=== PATIENT | male | born 1950 | race Caucasian/White ===

== ENCOUNTER → 2016-12-03 | Outpatient (CLI) | payer BC ==
[~2016-12-03] MED LIST: ASPI81TA21 PO; ATOR-24 PO; FLUO20CA35 PO; LEVO200T PO; LISI20TA3 PO; METF1000 PO; METO25TA3 PO; MULT-506 PO; TRIA37.5 PO
[2016-12-03 16:23] LABS: BLOOD UREA NITROGEN 24 mg/dl (7-18); BUN/CREATININE RATIO 21.6 (10-20); CALCIUM 8.9 mg/dl (8.5-10.1); CARBON DIOXIDE 30 mmol/L (21-32); CHLORIDE 106 mmol/L (98-107); GLUCOSE 97 mg/dl (70-99); POTASSIUM 3.6 mmol/L (3.5-5.1); SODIUM 142 mmol/L (136-145)
[2016-12-03 16:25] LABS: CHOLESTEROL 120 mg/dl (0-200); CHOLESTEROL/HDL RATIO 3.3; HDL CHOLESTEROL 36 mg/dl; TRIGLYCERIDES 128 mg/dl (0-150); VERY LOW DENSITY LIPOPROT CALC 26 mg/dl
[2016-12-03 16:41] LABS: RATIO 19.5 mcg/mg (0-30.0)
[2016-12-04 08:51] LABS: ESTIMATED AVERAGE GLUCOSE 151 mg/dl; HA1C FLAG Normal (Normal)
== END ==
LOC: C.LABSPEC 14:48
PROVIDERS: ATTEND Internal Medicine
DX: E78.5 Hyperlipidemia, unspecified (principal); I10 Essential (primary) hypertension; Z00.01 Encounter for general adult medical examination with abnormal findings; E11.65 Type 2 diabetes mellitus with hyperglycemia

== ENCOUNTER → 2017-01-12 | Outpatient (CLI) | payer BC ==
[2017-01-12 14:56] LABS: HEMATOCRIT 49.9 % (42-52); MEAN CELL VOLUME 93.8 fL (80-100); MEAN CORPUSCULAR HEMOGLOBIN 31.8 pg (25-34); MEAN CORPUSCULAR HGB CONC 33.9 g/dl (32-36); MEAN PLATELET VOLUME 10.6 fL (7.4-10.4); PLATELET COUNT 209 K/uL (130-400); RED BLOOD COUNT 5.32 M/uL (4.7-6.1); WHITE BLOOD COUNT 8.06 K/uL (4.8-10.8)
[2017-01-12 15:23] LABS: ALT/SGPT 13 U/L (12-78); AST/SGOT 8 U/L (15-37); BLOOD UREA NITROGEN 25 mg/dl (7-18); BUN/CREATININE RATIO 25.5 (10-20); CALCIUM 8.8 mg/dl (8.5-10.1); CARBON DIOXIDE 31 mmol/L (21-32); CHLORIDE 106 mmol/L (98-107); CREATININE 0.97 mg/dl (0.60-1.40); GLUCOSE 99 mg/dl (70-99); POTASSIUM 3.8 mmol/L (3.5-5.1); SODIUM 143 mmol/L (136-145)
[2017-01-12 15:26] LABS: CHOLESTEROL 113 mg/dl (0-200); CHOLESTEROL/HDL RATIO 3.3; HDL CHOLESTEROL 34 mg/dl; LDL CHOLESTEROL CALCULATED 54 mg/dl; TRIGLYCERIDES 126 mg/dl (0-150); VERY LOW DENSITY LIPOPROT CALC 25 mg/dl
== END | disposition home or self-care (01) ==
LOC: C.LAB 14:06
PROVIDERS: ATTEND Internal Medicine Cardiovascular Disease
DX: I10 Essential (primary) hypertension (principal); E78.00 Pure hypercholesterolemia, unspecified; I25.10 Atherosclerotic heart disease of native coronary artery without angina pectoris; R00.2 Palpitations

== ENCOUNTER → 2017-04-02 | Outpatient (CLI) | payer BC | END | disposition home or self-care (01) | LOC: C.PATHSPEC 17:27 | PROVIDERS: ATTEND Urology | DX: C67.9 Malignant neoplasm of bladder, unspecified (principal) ==

== ENCOUNTER → 2017-04-06 | Outpatient (CLI) | payer BC | END | disposition home or self-care (01) | LOC: C.LABSPEC 15:09 | PROVIDERS: ATTEND Internal Medicine | DX: E11.9 Type 2 diabetes mellitus without complications (principal); E03.9 Hypothyroidism, unspecified; Z12.11 Encounter for screening for malignant neoplasm of colon ==

== ENCOUNTER → 2017-04-09 | Outpatient (CLI) | payer BC ==
[2017-04-09 16:19] LABS: THYROID STIMULATING HORMONE 0.978 uIu/ml (0.300-4.500)
[2017-04-10 06:30] LABS: ESTIMATED AVERAGE GLUCOSE 148 mg/dl; HA1C FLAG Normal (Normal)
== END | disposition home or self-care (01) ==
LOC: C.LABSPEC 16:09
PROVIDERS: ATTEND Internal Medicine
DX: E11.9 Type 2 diabetes mellitus without complications (principal); E03.9 Hypothyroidism, unspecified

== ENCOUNTER → 2017-10-07 | Outpatient (CLI) | payer BC ==
[2017-10-07 15:37] LABS: BASO % 0.4 %; BASO ABS # 0.02 K/uL (0-0.2); EOS % 2.3 %; EOS ABS # 0.12 K/uL (0-0.5); HEMATOCRIT 49.1 % (42-52); HEMOGLOBIN 16.8 g/dL (14.0-18.0); IG# 0.01 K/uL (0.00-0.02); LYMPH % 28.3 %; LYMPH ABS # 1.51 K/uL (1.2-3.4); MEAN CELL VOLUME 93.3 fL (80-100); MEAN CORPUSCULAR HEMOGLOBIN 31.9 pg (25-34); MEAN CORPUSCULAR HGB CONC 34.2 g/dl (32-36); MEAN PLATELET VOLUME 11.2 fL (7.4-10.4); MONO % 9.9 %; MONO ABS # 0.53 K/uL (0.11-0.59); NEUT % 58.9 %; NEUT ABS # 3.14 K/uL (1.4-6.5); PLATELET COUNT 175 K/uL (130-400); RED CELL DISTRIBUTION WIDTH CV 14.5 % (11.5-14.5); RED CELL DISTRIBUTION WIDTH SD 48.7 fL (36.4-46.3); WHITE BLOOD COUNT 5.33 K/uL (4.8-10.8)
[2017-10-07 15:45] LABS: ALBUMIN 3.6 gm/dl (3.4-5.0); ALT/SGPT 19 U/L (12-78); AST/SGOT 12 U/L (15-37); BLOOD UREA NITROGEN 21 mg/dl (7-18); CARBON DIOXIDE 31 mmol/L (21-32); CHOLESTEROL 102 mg/dl (0-200); CREATININE 1.07 mg/dl (0.60-1.40); GLUCOSE 99 mg/dl (70-99); POTASSIUM 3.7 mmol/L (3.5-5.1); SODIUM 139 mmol/L (136-145)
[2017-10-07 15:54] LABS: ALKALINE PHOSPHATASE 108 U/L (45-117); LDL CHOLESTEROL (DIRECT) 62 mg/dl; TOTAL PROTEIN 7.2 gm/dl (6.4-8.2)
[2017-10-08 06:37] LABS: HEMOGLOBIN A1C 7.1 % (4.5-5.6)
== END | disposition home or self-care (01) ==
LOC: C.LABSPEC 15:00
PROVIDERS: ATTEND Internal Medicine
DX: I25.10 Atherosclerotic heart disease of native coronary artery without angina pectoris (principal); E78.5 Hyperlipidemia, unspecified; E11.9 Type 2 diabetes mellitus without complications; E03.9 Hypothyroidism, unspecified

== ENCOUNTER → 2017-10-07 | Outpatient (CLI) | payer BC | END | disposition home or self-care (01) | LOC: C.LABSPEC 14:58 | PROVIDERS: ATTEND Urology | DX: C67.9 Malignant neoplasm of bladder, unspecified (principal) ==

== ENCOUNTER 2021-12-02 08:17 | Observation (INO) ==
[2021-12-02] MEDS ORDERED: ASPIRIN 325 MG ECTAB PO ONE (08:55)
--- NOTE | 2021-12-02 10:04 | History & Physical Bridge Note ---
Date of Service December 02, 2021 History & Physical Bridge Note I have examined the patient, reviewed the History & Physical and in the interval since the performance of the History & Physical I have noted the following changes of clinical significance: no changes noted
[2021-12-02] MEDS ORDERED: niCARdipine HCL INJ 2.5 MG/ML 10 ML AMP ONE (10:10)
[2021-12-02] MEDS ORDERED: NITROGLYCERIN/D5W 100MCG/ML 20ML SYR ONE (10:10)
[2021-12-02] MEDS ORDERED: fentaNYL citrate 100 MCG/2 ML VIAL ONE ×3 (10:10→12:36)
[2021-12-02] MEDS ORDERED: HEPARIN (PORCINE) 1000 UNIT/ML 10 ML (CATH LAB USE ONLY) ONE ×2 (10:10→11:53)
[2021-12-02] MEDS ORDERED: MIDAZOLAM HCL 1 MG/ML 2ML VIAL ONE ×3 (10:10→11:50)
[2021-12-02] MEDS ORDERED: methylPREDNISolone 125 MG/2 ML VIAL ONE (10:11)
[2021-12-02] MEDS ORDERED: diphenhydrAMINE 50 MG/ML VIAL ONE (10:11)
--- NOTE | 2021-12-02 10:11 | Pre Anesthesia Assessment ---
Date of Service December 02, 2021 Pre Sedation Assessment Vital Signs Temp Pulse Resp BP Pulse Ox 12/02/21 08:35 36.3 C L 50 L 18 150/95 H 92 Cardiovascular + bradycardic Respiratory normal respiratory effort, lungs clear to auscultation Pre-Sedation Airway Assessment Smoking Status: Current every day smoker Mallampati Class: II ASA: ASA3 NPO Status Date of Last Intake of Fluids: 12/01/21 Time of Last Intake of Fluids: 23:00 Date of Last Intake of Solid Food: 12/01/21 Time of Last Intake of Solid Foods: 23:00 Procedure Planning Contraindications for Sedation: none Current Medications Reviewed: Yes Notes The planned sedation has been discussed with the patient. Informed Consent was obtained. I have identified the patient, determined the appropriateness of sedation and have assessed the patient immediately prior to the procedure. All medicine(s) and interventions are by my order.
--- NOTE | 2021-12-02 11:41 | Cardiac Catheterization ---
[facility] Data: Telemarketing Manager Cardiac Status Clinical evaluation leading to the procedure CAD Presenation: Positive Stress Test and Stable angina Anginal Classification: CCS III Heart Failure: No Cardiogenic Shock within 24 Hours: No Cardiac Arrest within 24 Hours: No Imaging Studies Past 6 Months: Yes Stress Studies Past 6 Months: Yes Standard Exercise Test: Yes - Negative Stress Echocardiogram: Yes - Positive and Risk/Extent of Ischemia (Intermediate) Stress Testing w/SPECT MPI: No Cardiac CTA: No Coronary Anatomy Dominant: Co-Dominant Diagnostic Physicians Name: João Rousseau MD Status: Elective Closure Device Percutaneous Entry Location: Radial Closure Device: Radial Band Recommendations: PCI without planned CABG Cardiac Cath Procedure Full Procedure Date December 02, 2021 Pre-Procedure Diagnosis Pre-Procedure Diagnosis: Angina and Positive Stress Test AUC Score AUC Score: 8 Post-Procedure Diagnosis Post-Procedure Diagnosis: Severe CAD and Normal Intracardiac Pressures Procedure(s) Performed Procedure(s) Performed: Coronary Angiography and Left Heart Cath Massage Coordinator João Rousseau MD Bag Hanger(s) Showers Estimated Blood Loss Estimated Blood Loss: < 25 ml Medication(s) Medication(s): Diphenhydramine, Fentanyl, Heparin, Lidocaine 1%, Nicardipine and Versed Summary of Findings Procedures: 1. Coronary angiography 2. Left heart catheterization 3. Moderate sedation Indication: Mr. Hopkins is a 71-year-old gentleman with known CAD, hypertension, dyslipidemia, and type 2 diabetes. He has been noting exertional angina and underwent outpatient stress echo that suggested LAD ischemia. Coronary angiography: 1. Left main: No significant CAD. 2. Left anterior descending: LAD is a large-caliber vessel that extends to the apex. Proximal and early mid LAD 20 to 30%, involving ostium of small D1. Mid LAD 70 to 80% at bifurcation of medium caliber D2. GISELL-3 flow. 3. Circumflex: Codominant. Distal circumflex 20 to 30%. OM1 and circumflex PDA without significant CAD. 4. Right coronary artery: Codominant. Diffuse nonobstructive CAD involving the RCA. Proximal RCA 30%. Mid RCA 30 to 40%. Distal RCA 40%. Small PDA and PL. Left heart catheterization: 1. Left ventriculography was not performed. 2. Normal LVEDP; 11 mmHg. 3. No significant aortic stenosis. Moderate sedation: 1. Sedation start time: 10:55 AM 2. Sedation end time: 11:25 AM Procedure notes: 1. Access was obtained via the right radial artery. J-wire was unable to be advanced. Angiography was performed. Glidewire was advanced into the brachial artery and catheters were easily advanced. 2. IVF (normal saline) administered prior to angiography due to CKD. 3. Solumedrol and benadryl IV given due to iodine allergy (unclear if IV dye allergy). Impression: 1. Severe CAD involving mid LAD. 2. Otherwise, nonobstructive CAD. 3. Codominant system. 4. Normal left-sided filling pressure. 5. No significant aortic stenosis. Plan: 1. Images reviewed with Dr. Villa of interventional cardiology who plans to attempt PCI of mid LAD. 2. Smoking cessation. 3. Risk factor modification. 4. Blood pressure control (medications were adjusted last week as an outpatient however he did not start amlodipine as prescribed). Hemodynamics Rest Ao:: 166/80 Final Ao: 176/83 LV: 160/5/11 Recommendations Recommendations: PCI without planned CABG Specimens Specimens: None Radiation Exposure (mGy) 963 mGy. Fluoro time 6 min. Contrast (mls) 70 ml Procedural Complication(s) None Disposition remains in laborer operator for PCI attempt I attest to the content of the Intraoperative Record and any orders documented therein. Any exceptions are noted below. [facility] Card Cath Procedure Codes Cardiac Catheterization Procedure 1: Cardiovascular Cath Procedures: 73519 Coronaries and LHC (+/-LV) Moderate Sedation Procedure 1: Sedation/Anesthesia: 00734 Mod Sedation by the same physician;Init15 Min Child Age 5 & Up Procedure 2: Sedation/Anesthesia: 42237 Mod Sedation by the same physician; Ea [id number] Minutes PG Care Time/CCT Total # of Minutes Spent Total Time Spent with Patient: Total time spent is greater than 50% in coordination of care (as documented) at patient's floor/unit and/or counseling patient:
[2021-12-02] MEDS ORDERED: EPTIFIBATIDE 2 MG/ML 10 ML VIAL (CATH LAB USE ONLY) IV ONE (12:04)
[2021-12-02] MEDS ORDERED: DOPamine 400MG / 250ML D5W (Cath Lab Use ONLY) ONE (12:06)
[2021-12-02] MEDS ORDERED: EPTIFIBATIDE 0.75 MG/ML 75MG VIAL (CATH LAB USE ONLY) ONE (12:46)
[2021-12-02] MEDS ORDERED: TICAGRELOR 90 MG TAB PO ONE (12:50)
--- NOTE | 2021-12-02 13:07 | Post Anesthesia Assessment ---
Date of Service December 02, 2021 Post Sedation Assessment Vital Signs Temp Pulse Resp BP Pulse Ox 12/02/21 13:00 47 L 18 180/87 H 93 12/02/21 08:35 97.3 F L 50 L 18 150/95 H 92 Recovery Score Activity: Moves 4 extremities Respiration: Deep Breath/Cough Circulation: +/-20% PreAnes Value Consciousness: Fully Awake Oxygen Saturation: > 92% On Room Air Post Anesthesia Score: 10 Discharge Sedation Level of Care: Fast Track Phase II Post Sedation Plan On clinical assessment, the patient appears to have tolerated the sedation without complications. Patient is recovering as anticipated. Patient will continue to be monitored by nursing and may be discharged when sedation discharge criteria are met per below protocol. Upon Completions of procedure up to 15 minutes continue every 5 minute vital signs and the P.A.R. score; then discharge to a Phase I or Fast Track to Phase II per the following guidelines: * Discharge Patient to appropriate Phase II area if PAR is 8 or greater or return to pre- procedure baseline. The post - procedure orders will be as directed. * If PAR score is less than 8 or not return to pre-procedure baseline then patient will follow Phase I monitoring till PAR is reached for Phase II. The Phase I may be done in procedure room or may call to secure a Phase I area. * If naloxone or flumazenil are used for reversal, hold in Phase I for continued monitoring from when last reversal dose was given for a minimum of 60 minutes or longer pending the nurse and/or physician discretion of patient condition before discharge to Phase II. Please call the Sedation Physician to re-evaluate and complete post-note for discharge to Phase II area. Do NOT discharge from procedure sedation or Phase 1 until post- sedation evaluation note is complete by procedure /sedation MD Sedation Discharge Instructions to be given to the patient at discharge to home.
[2021-12-02] MEDS ORDERED: NITROGLYCERIN SL 0.4 MG/TAB TAB SL PRN ×2 (13:35→13:40)
[2021-12-02] MEDS ORDERED: EPTIFIBATIDE BOLUS/DRIP IV STA (13:35)
[2021-12-02] MEDS ORDERED: ONDANSETRON INJ 2 MG/ML 2 ML VIAL IV PRN (13:35)
[2021-12-02] MEDS ORDERED: SODIUM CHLORIDE 0.9% 1000ML 1,000 ML IV SCH (13:45)
--- NOTE | 2021-12-02 13:46 | Cardiac Catheterization ---
[facility] Data: Reservations Manager Cardiac Status Clinical evaluation leading to the procedure CAD Presenation: Positive Stress Test Diagnostic Physicians Name: Kenny Villa MD Closure Device Recommendations: PCI without planned CABG Cardiac Cath Procedure Full Procedure Date December 02, 2021 Pre-Procedure Diagnosis Pre-Procedure Diagnosis: Angina and Positive Stress Test AUC Score AUC Score: 8 Post-Procedure Diagnosis Post-Procedure Diagnosis: Severe CAD and Successful PCI Procedure(s) Performed Procedure(s) Performed: Coronary Angiography, Left Heart Cath and Drug Eluting Stent Hoistman Kenny Villa MD Face Hardener(s) Showers Estimated Blood Loss Estimated Blood Loss: < 25 ml Medication(s) Medication(s): Diphenhydramine, Fentanyl, Heparin, Integrilin, Lidocaine 1%, Nicardipine and Versed Medication(s): Ticagrelor Summary of Findings Indication: Refractory angina, abnormal stress test Access: 6 Fr right radial artery Catheters: EBU 3.5 guide Findings: For full details of patient's coronary angiography please see cath report dictated by Dr. Rousseau. Briefly, patient found to have severe LAD disease with 75% stenosis at bifurcation with medium caliber D2. Prior stress test consistent with anterior ischemia. Decision to proceed with PCI. -- PCI -- Antithrombotic therapy: Heparin, ticagrelor, Integrilin Procedure: Left main cannulated with EBU 3.5 guide Pre-procedure flow GISELL 3 Circus Performer 50 wire passed across lesion into distal LAD Attempt made to place second wire into diagonal unsuccessful Mid LAD lesion predilated with 2.5 and 3.0 compliant balloons With the aid of a telescope support catheter dilated lesion stented with 3.0 x 18 mm Erick Stent placement noted to have no flow in distal LAD. Also noted to have severe ostial stenosis in jailed second diagonal. Attempt made to pass wire across distal LAD occlusion unsuccessful IC vasodilators, IC Integrilin administered with eventual return of distal LAD flow and evidence of distal LAD dissection. Mid LAD stent postdilated with 3.5 NC Multiple attempts made to cross into jailed diagonal but unsuccessful. Severe ostial stenosis but GISELL-3 flow Due to tortuosity and difficulty crossing vessel decision made to avoid further attempts at intervention to distal LAD and continue Integrilin infusion. Post procedure GISELL 3 flow in LAD stent, second diagonal and distal LAD. Stent well expanded with minimal residual stenosis. Severe residual ostial stenosis of jailed diagonal. Residual dissection in distal LAD but not flow-limiting. Arterial Closure: TR band Summary: 1. PCI of mid LAD with single drug-eluting stent (3.0 x 18 mm Erick; postdilated with 3.5 NC). Severe ostial stenosis in jailed D2 with GISELL-3 flow 2. Procedural distal LAD dissection, transiently flow-limiting. Recommendations: To PCU for continued monitoring Loaded with ticagrelor 180 mg in Reservations Manager Continue IC Integrilin overnight Continue dual-antiplatelet therapy for at least 1 year Hemodynamics Rest Ao:: 148/70/97 Final Ao: 132/71/25 LV: -- Recommendations Recommendations: PCI without planned CABG Specimens Specimens: None Radiation Exposure (mGy) 7173 Contrast (mls) 240 Anesthesia Moderate 1253-0196 Procedural Complication(s) None Disposition PCU I attest to the content of the Intraoperative Record and any orders documented therein. Any exceptions are noted below. [facility] Card Cath Procedure Codes Moderate Sedation Procedure 1: Sedation/Anesthesia: 21236 Mod Sedation by the same physician; Ea [id number] Minutes Stenting Procedure 1: Cardiovascular Stent Procedures: 93409 Perc transcatheter placement of intracoronary stent(s), with ang PG Care Time/CCT Total # of Minutes Spent Total Time Spent with Patient: Total time spent is greater than 50% in coordination of care (as documented) at patient's floor/unit and/or counseling patient:
[2021-12-02] MEDS: EPTIFIBATIDE 75 MG/100 ML VIAL IV SCH (15:13)
[2021-12-02] MEDS ORDERED: hydrALAZINE HCL 20 MG/ML VIAL IV PRN (15:52)
[2021-12-02] MEDS ORDERED: lisinopril 10 MG TAB PO STA (15:55)
[2021-12-02] MEDS ORDERED: amLODIPine BESYLATE 5 MG TAB PO ONE (16:00)
[2021-12-02] MEDS: METOPROLOL TARTRATE 25 MG TAB PO SCH (20:59)
[2021-12-03] MEDS: EPTIFIBATIDE 75 MG/100 ML VIAL IV SCH ×2 (01:40→10:56)
[2021-12-03] MEDS ORDERED: LEVOTHYROXINE SODIUM 150 MCG TABLET PO SCH (06:30)
[2021-12-03 06:34] LABS: Hemoglobin 17.2 g/dL (14.0-18.0); Mean Corpuscular Hemoglobin 31.4 pg (25-34); Mean Corpuscular Hgb Conc 33.7 g/dL (32-36); Mean Corpuscular Volume 93.2 fL (80-100); Mean Platelet Volume 10.8 fL (7.4-10.4); Platelet Count 210 K/uL (130-400); RDW Coefficient of Variation 14.7 % (11.5-14.5); RDW Standard Deviation 49.8 fL (36.4-46.3); Red Blood Count 5.47 M/uL (4.7-6.1); White Blood Count 9.88 K/uL (4.8-10.8)
[2021-12-03] MEDS ORDERED: LIDOCAINE 1% LOCAL 20 ML VIAL ONE (06:35)
[2021-12-03] MEDS ORDERED: HEPARIN (PORCINE) 1000 UNIT/ML 10 ML (CATH LAB USE ONLY) ONE (06:45)
[2021-12-03] MEDS ORDERED: fentaNYL citrate 100 MCG/2 ML VIAL ONE ×2 (06:45→07:54)
[2021-12-03] MEDS ORDERED: niCARdipine HCL INJ 2.5 MG/ML 10 ML AMP ONE (06:45)
[2021-12-03] MEDS ORDERED: MIDAZOLAM HCL 1 MG/ML 2ML VIAL ONE ×3 (06:45→08:44)
[2021-12-03] MEDS ORDERED: NITROGLYCERIN/D5W 100MCG/ML 20ML SYR ONE (06:46)
--- NOTE | 2021-12-03 07:04 | Pre Anesthesia Assessment ---
Date of Service December 03, 2021 Pre Sedation Assessment Vital Signs Temp Pulse Pulse Pulse Resp BP Pulse Ox 12/03/21 06:55 50 L 17 166/100 H 92 12/03/21 03:22 98.1 F 49 L 18 144/75 H 91 12/02/21 23:22 98.1 F 59 L 18 138/78 96 12/02/21 22:18 70 12/02/21 21:20 60 149/95 H 12/02/21 20:58 70 164/100 H 12/02/21 20:20 55 L 179/100 H 12/02/21 19:35 97.3 F L 60 20 150/90 H 98 12/02/21 18:20 58 L 13 131/85 98 12/02/21 17:20 49 L 24 174/91 H 96 12/02/21 16:42 50 L 26 H 178/101 H 98 12/02/21 16:20 53 L 22 199/113 H 96 12/02/21 16:07 50 L 20 186/117 H 96 12/02/21 15:20 97.5 F L 47 L 18 180/105 H 96 12/02/21 14:50 47 L 18 190/126 H 98 12/02/21 14:45 46 L 12/02/21 14:37 97.5 F L 48 L 16 200/113 H 92 12/02/21 14:15 52 L 18 180/108 H 93 12/02/21 14:00 45 L 18 208/105 H 94 12/02/21 13:45 48 L 18 195/100 H 95 12/02/21 13:30 47 L 18 180/109 H 95 12/02/21 13:15 45 L 18 181/95 H 95 12/02/21 13:00 47 L 18 180/87 H 89 L 12/02/21 08:35 97.3 F L 50 L 18 150/95 H 92 Cardiovascular RRR, no murmur, no edema Respiratory normal respiratory effort, lungs clear to auscultation Pre-Sedation Airway Assessment Smoking Status: Current every day smoker Hx Sleep Apnea: No Short, Thick Neck: No Thyromental Distance: > or= 3.5 Finger Breadths Oral Cavity: + WNL Mallampati Class: III ASA: ASA3 NPO Status Date of Last Intake of Fluids: 12/02/21 Time of Last Intake of Fluids: 23:00 Date of Last Intake of Solid Food: 12/02/21 Time of Last Intake of Solid Foods: 23:00 Procedure Planning Contraindications for Sedation: none Current Medications Reviewed: Yes Notes The planned sedation has been discussed with the patient. Informed Consent was obtained. I have identified the patient, determined the appropriateness of sedation and have assessed the patient immediately prior to the procedure. All medicine(s) and interventions are by my order.
[2021-12-03 07:10] LABS: BUN Creatinine Ratio 23.8 (10-20); Creatinine Clr Calc Pharmacy 63.5 ml/min; Est GFR (African American) 69.7 ml/min; Est GFR (Non-African American) 60.1 ml/min; Potassium 3.8 mmol/L (3.5-5.1)
[2021-12-03] MEDS ORDERED: ATORVASTATIN 40 MG TAB PO SCH (09:00)
[2021-12-03] MEDS ORDERED: amLODIPine BESYLATE 5 MG TAB PO SCH (09:00)
[2021-12-03] MEDS ORDERED: FLUoxetine HCL 20 MG CAP PO SCH (09:00)
[2021-12-03] MEDS ORDERED: lisinopril 20 MG TAB PO SCH (09:00)
[2021-12-03] MEDS ORDERED: ASPIRIN 81 MG ECTAB PO SCH (09:00)
--- NOTE | 2021-12-03 09:12 | Post Anesthesia Assessment ---
Date of Service December 03, 2021 Post Sedation Assessment Vital Signs Temp Pulse Pulse Pulse Resp BP Pulse Ox 12/03/21 08:04 61 12/03/21 06:55 50 L 17 166/100 H 92 12/03/21 03:22 98.1 F 49 L 18 144/75 H 91 12/02/21 23:22 98.1 F 59 L 18 138/78 96 12/02/21 22:18 70 12/02/21 21:20 60 149/95 H 12/02/21 20:58 70 164/100 H 12/02/21 20:20 55 L 179/100 H 12/02/21 19:35 97.3 F L 60 20 150/90 H 98 12/02/21 18:20 58 L 13 131/85 98 12/02/21 17:20 49 L 24 174/91 H 96 12/02/21 16:42 50 L 26 H 178/101 H 98 12/02/21 16:20 53 L 22 199/113 H 96 12/02/21 16:07 50 L 20 186/117 H 96 12/02/21 15:20 97.5 F L 47 L 18 180/105 H 96 12/02/21 14:50 47 L 18 190/126 H 98 12/02/21 14:45 46 L 12/02/21 14:37 97.5 F L 48 L 16 200/113 H 92 12/02/21 14:15 52 L 18 180/108 H 93 12/02/21 14:00 45 L 18 208/105 H 94 12/02/21 13:45 48 L 18 195/100 H 95 12/02/21 13:30 47 L 18 180/109 H 95 12/02/21 13:15 45 L 18 181/95 H 95 12/02/21 13:00 47 L 18 180/87 H 89 L Recovery Score Activity: Moves 4 extremities Respiration: Deep Breath/Cough Circulation: +/-20% PreAnes Value Consciousness: Fully Awake Oxygen Saturation: > 92% On Room Air Post Anesthesia Score: 10 Discharge Sedation Level of Care: Fast Track Phase II Post Sedation Plan On clinical assessment, the patient appears to have tolerated the sedation without complications. Patient is recovering as anticipated. Patient will continue to be monitored by nursing and may be discharged when sedation discharge criteria are met per below protocol. Upon Completions of procedure up to 15 minutes continue every 5 minute vital signs and the P.A.R. score; then discharge to a Phase I or Fast Track to Phase II per the following guidelines: * Discharge Patient to appropriate Phase II area if PAR is 8 or greater or return to pre- procedure baseline. The post - procedure orders will be as directed. * If PAR score is less than 8 or not return to pre-procedure baseline then patient will follow Phase I monitoring till PAR is reached for Phase II. The Phase I may be done in procedure room or may call to secure a Phase I area. * If naloxone or flumazenil are used for reversal, hold in Phase I for continued monitoring from when last reversal dose was given for a minimum of 60 minutes or longer pending the nurse and/or physician discretion of patient condition before discharge to Phase II. Please call the Sedation Physician to re-evaluate and complete post-note for discharge to Phase II area. Do NOT discharge from procedure sedation or Phase 1 until post- sedation evaluation note is complete by procedure /sedation MD Sedation Discharge Instructions to be given to the patient at discharge to home.
[2021-12-03] MEDS ORDERED: TICAGRELOR 90 MG TAB PO ONE (09:13)
--- NOTE | 2021-12-03 09:28 | Cardiac Catheterization ---
[facility] Data: Video Rental Clerk Cardiac Status Clinical evaluation leading to the procedure CAD Presenation: Positive Stress Test Diagnostic Physicians Name: Kenny Villa MD Closure Device Recommendations: PCI without planned CABG Cardiac Cath Procedure Full Procedure Date December 03, 2021 Pre-Procedure Diagnosis Pre-Procedure Diagnosis: Angina, Positive Stress Test and CAD AUC Score AUC Score: 8 Post-Procedure Diagnosis Post-Procedure Diagnosis: Severe CAD and Successful PCI Procedure(s) Performed Procedure(s) Performed: Coronary Angiography, Left Heart Cath and Drug Eluting Stent Geology Associate Kenny Villa MD Software Reverse Engineer(s) Jenn Estimated Blood Loss Estimated Blood Loss: 15 Medication(s) Medication(s): Heparin, Lidocaine 1%, Nicardipine, Nitroglycerin and Versed Medication(s): Ticagrelor Summary of Findings Indication: Patient underwent PCI of mid LAD yesterday in the setting of refractory angina, abnormal stress test. Procedure complicated by distal LAD dissection with transient flow obstruction in wraparound apical LAD. Flow reestablished with vasodilators, IC Integrilin but dissection persisted on final angiograms. Kept on Integrilin overnight. No new chest pain. Brought back this morning to reassess distal LAD. Access: 6 Fr right radial Catheters: EBU 3.75 guide Findings: LM -large caliber, no significant disease LAD -calcified, mid LAD stent patent, 95% hazy distal LAD stenosis with GISELL II flow in apical LAD. Severe ostial stenosis of jailed D2. LCxlarge caliber, no significant disease LVEDP post [id number] -- PCI -- Antithrombotic therapy: Heparin, ticagrelor Procedure: Left main cannulated with EBU 3.75 guide Pre-procedure flow GISELL 2 in apical LAD Long whisper wire passed across distal LAD dissection With the aid of a telescope support catheter Corsair catheter passed into apical vessel Injection through Corsair confirmed distal intraluminal position Wire exchanged for mailman wire Significant difficulty passing any balloons across prior stent Stent redilated with 2.0 and 3.0 balloons Telescope catheter advanced into stent. Proximal aspect of stent did appear to accordion distally. Eventually able to pass 3.0 balloon down to distal LAD stenosis and gently dilated. Distal LAD dissection stented with 2.5 x 12 mm [place]. Postdilated with stent balloon. IC vasodilators administered for spasm Post procedure GISELL 3 flow in LAD, mid LAD and distal LAD stents appeared well expanded. No residual dissection. Severe ostial stenosis in jailed D2 with GISELL II flow. Arterial Closure: TR band Summary: 1. Flow-limiting residual distal LAD dissection 2. Successful PCI of distal LAD dissection with single SYLVIE (2.5 x 12 mm Erick). 3. Additional post dilation of mid LAD stent with 4.0 NC balloon Residual severe ostial stenosis in jailed D2 Recommendations: To PCU for continued monitoring Continue dual-antiplatelet therapy for at least aspirin, ticagrelor Consult cardiac Rehab Medical management of residual diagonal disease. Hemodynamics Rest Ao:: 146/88/117 Final Ao: 153/85/116 LV: 154/14 Recommendations Recommendations: PCI without planned CABG Specimens Specimens: None Radiation Exposure (mGy) 6874 (Pt counseled on signs of radiation toxicity) Contrast (mls) 100 Anesthesia Moderate 1179-7135 Procedural Complication(s) None Disposition PCU I attest to the content of the Intraoperative Record and any orders documented therein. Any exceptions are noted below. [facility] Card Cath Procedure Codes Cardiac Catheterization Procedure 1: Cardiovascular Cath Procedures: 51291 Left Heart Cath (+/-LV) Moderate Sedation Procedure 1: Sedation/Anesthesia: 11955 Mod Sedation by the same physician; Ea [id number] Minutes Procedure 2: Sedation/Anesthesia: 45109 Mod Sedation by the same physician;Init15 Min Child Age 5 & Up Stenting Procedure 1: Cardiovascular Stent Procedures: 89178 Perc transcatheter placement of intracoronary stent(s), with ang PG Care Time/CCT Total # of Minutes Spent Total Time Spent with Patient: Total time spent is greater than 50% in coordination of care (as documented) at patient's floor/unit and/or counseling patient:
[2021-12-03] MEDS ORDERED: SODIUM CHLORIDE 0.9% 1000ML 1,000 ML IV SCH (09:30)
[2021-12-03] MEDS: METOPROLOL TARTRATE 25 MG TAB PO SCH (09:51)
--- NOTE | 2021-12-03 16:15 | Discharge Summary ---
Date of Service December 03, 2021 Admission HPI Per Admitting Provider Mr. Hopkins is a pleasant 71-year-old gentleman with a history significant for CAD, hypertension, dyslipidemia, type 2 diabetes, tobacco abuse, and bladder cancer. He presented on 12/02/2021 for elective cardiac catheterization given angina and abnormal stress echo suggesting LAD territory ischemia. He underwent PCI of the mid LAD which was complicated by distal LAD dissection. He was kept for observation overnight. Principal Diagnosis LAD CAD s/p PCI complicated by LAD dissection and additional PCI of distal LAD. Discharge Exam Gen.: No acute distress. Alert and oriented. HEENT: Anicteric sclera. Neck: No JVD. Cardiac: PMI was nondisplaced. No ventricular heave. Regular. Normal S1-S2. No murmurs, rubs, or gallops. Pulmonary: Decreased breath sounds throughout, but otherwise clear to auscultation bilaterally without wheezes, rales, or rhonchi. Abdomen: Soft, nontender, nondistended, with normoactive bowel sounds. No bruits noted. Extremities: 2+ radial pulses bilaterally. Right radial cath site without hematoma. edema or cyanosis. Psychiatric: Affect appears appropriate. Discharge Data Allergies Allergy/AdvReac Type Severity Reaction Status Date / Time iodine Allergy Unknown RASH AND Verified 11/29/21 08:18 HIVES Procedures Performed Operation Date: 12/02/21 10:00 Actual Procedures s Cineradiography w/Routine Exam - João Rousseau MD s Cath, Left with Cors and Vent - João Rousseau MD p Drug Eluting Stent SGl Vessel - Kang Villa MD Coronary angiography: 1. Left main: No significant CAD. 2. Left anterior descending: LAD is a large-caliber vessel that extends to the apex. Proximal and early mid LAD 20 to 30%, involving ostium of small D1. Mid LAD 70 to 80% at bifurcation of medium caliber D2. GISELL-3 flow. 3. Circumflex: Codominant. Distal circumflex 20 to 30%. OM1 and circumflex PDA without significant CAD. 4. Right coronary artery: Codominant. Diffuse nonobstructive CAD involving the RCA. Proximal RCA 30%. Mid RCA 30 to 40%. Distal RCA 40%. Small PDA and PL. Left heart catheterization: 1. Left ventriculography was not performed. 2. Normal LVEDP; 11 mmHg. 3. No significant aortic stenosis. PCI: 1. PCI of mid LAD with single drug-eluting stent (3.0 x 18 mm [place]; postdilated with 3.5 NC). Severe ostial stenosis in jailed D2 with GISELL-3 flow 2. Procedural distal LAD dissection, transiently flow-limiting. Operation Date: 12/03/21 07:30 Actual Procedures s Cineradiography w/Routine Exam - Kang Villa MD p Drug Eluting Stent SGl Vessel - Kang Villa MD Summary: 1. Flow-limiting residual distal LAD dissection 2. Successful PCI of distal LAD dissection with single SYLVIE (2.5 x 12 mm [place]). 3. Additional post dilation of mid LAD stent with 4.0 NC balloon Residual severe ostial stenosis in jailed D2 Ordered Studies 12/02/21 06:54 CL Cath Imgs for PACS use only Routine 12/03/21 06:41 CL Cath Imgs for PACS use only Routine Hospital Course (1) CAD in [place] artery: (2) S/P coronary artery stent placement: (3) Coronary artery dissection: (4) Exertional angina: (5) Hypertension: (6) Hypercholesterolemia: ASSESSMENT/PLAN: 1. CAD s/p LAD PCI: Able to ambulate in the hallway without angina or dyspnea. Overall, feels better following PCI x 2. Initial PCI complicated by distal LAD dissection for which he was observed overnight with Integrilin and then distal LAD dissection PCI on 12/03/2021. Has residual severe ostial D2, but remains asymptomatic. Continue aspirin 81 mg daily indefinitely. Continue Brilinta for at least 1 year. Continue high-intensity statin therapy, calcium channel venkatesh, beta-venkatesh, and MALORIE-inhibitor. 2. Coronary artery dissection: Distal LAD dissection during initial PCI as noted above. Asymptomatic and underwent PCI of the dissection and tolerated the procedure well. 3. Angina: No further angina following PCI. Had been experiencing angina as an outpatient. 4. Hypertension: Blood pressure has been elevated. Increase amlodipine to 10 mg daily and continue other antihypertensive agents. 5. Dyslipidemia: High-intensity statin therapy. 6. Disposition: Doing well from a cardiology standpoint following PCI as described above. Discussed and recommended further observation given repeat PCI but he declines and states that he needs to go home as he has animals at home that have not been attended to and that there is no one available to do so. He is able to obtain a ride home with family. Recommend follow-up in the outpatient cardiology office in 1 week. Total Time Total Time Spent Total Time Spent (In Minutes): 35 Total Time Includes: Examination of the Patient, Discharge Planning, Medication Reconciliation and Communication With Other Providers Discharge Plan Discharge Items Patient Disposition: Home - Self-Care Reason For Visit: Exertional Angina, Coronary Artery Disease Discharge Diagnosis: Coronary artery disease Activity: Per Instructions section Non-emergency contact: Human Resources Trainer Call non-emergency contact if: you have any medication questions, your symptoms worsen, you have a fever, your wound has increased redness, your wound has increased drainage and your wound pain has increased Follow-up/Referrals: João Rousseau MD [Physician] - 12/09/21 8:45 am Mandeep Arellano MD [Primary Care Provider] - Diet: Carb Consistent or DM2 and Heart Healthy Addtl Attending Provider Instructions: ACTIVITY RECOMMENDATIONS: Excess manipulation of the wrist should be avoided for the next 24-48 hours. * No lifting over 2 pounds (approximately a 1/2 gallon of milk) with the utilized arm for 24 hours. * No strenuous activity such as bowling or tennis for 3 days. * Keep the site of the procedure covered with a bandage for 24 hours. *You may shower the day after the procedure. Do not take a tub bath or submerge the puncture site in water for the next 3 days. *Do not operate any motorized equipment for 3 days. SPECIAL CARE INSTRUCTIONS: The site may be slightly bruised and sore following your procedure. Should any of the following occur, contact the Dr. who performed your procedure. 1. Redness/inflammation, swelling, chills, or fever, or colored drainage at procedure site within 3-7 days after your procedure. 2. Coldness, discoloration, ongoing numbness, severe pain, or swelling. Expect mild tingling of hand and tenderness at the puncture site for up to three days. If this persists beyond three days, or other symptoms develop, notify the Dr. who performed your procedure. BLEEDING: If the procedure site on your wrist begins to bleed, do not panic 1. Place 1 or 2 fingers firmly just slightly above the insertion site to stop the bleeding. You may be able to feel your pulse as you hold pressure. 2. Lift your finger after 5 minutes to see if the bleeding has stopped. 3. Once the bleeding has stopped, gently wipe the wrist area clean with a bandage. * If the bleeding from your wrist does not stop after 10 minutes, or if there is a large amount of bleeding or spurting, call 911 (do not drive yourself to the hospital). SKIN IRRITATION: * You may experience some redness and/or swelling in the area where radiation was administered. If any skin irritation occurs, please contact your family physician. FOLLOW UP VISIT: 1. Follow up in 1 week in cardiology office. Call [phone] for any questions or concerns. 2. Keep any scheduled doctor appointments. Pending Studies at Discharge: No Stand-Alone Forms: [facility] [employer], Smoking Cessation Medications and DC Order Prescriptions: New ticagrelor 90 mg tablet 90 mg PO BID Qty: 180 RF: 3 Continued atorvastatin 40 mg tablet 40 mg PO DAILY Qty: 90 RF: 3 nitroglycerin 0.4 mg tablet, sublingual 0.4 mg SL Q5M PRN (Reason: chest pain) Qty: 25 RF: 3 aspirin 81 mg tablet 81 mg PO DAILY RF: 0 lisinopril 20 mg tablet 20 mg PO DAILY Qty: 90 RF: 0 triamterene-hydrochlorothiazid 37.5-25 mg tablet 1 tab PO DAILY RF: 0 levothyroxine 150 mcg tablet 150 mcg PO DAILY RF: 0 metformin 1,000 mg tablet 1,000 mg PO BID RF: 0 fluoxetine 20 mg tablet 20 mg PO DAILY RF: 0 metoprolol succinate 25 mg tablet extended release 24 hr 25 mg PO DAILY RF: 0 Changed amlodipine 5 mg tablet 10 mg PO DAILY Qty: 30 RF: 5 Discharge Orders: Discharge Order (Routine); Ordered 12/03/21 Ordered By: João Fowler/Other Patient Handouts: Ticagrelor Oral Tablet 90 mg, ED Cardiac Cath Post Bleed Admission Data Admit Date/Time: 12/02/21 13:35 Attending Provider: João Rousseau Admit Provider: João Rousseau Primary Care Provider: Mandeep Arellano Other Interventions: Discharge Summary Assessment (RN) Last Done: 12/03/21 15:48 Coding Level of Care Code 90153 OBS Care - Discharge Diagnoses CAD in [place] artery I25.10 S/P coronary artery stent placement Z95.5 Coronary artery dissection I25.42 Exertional angina I20.8 Hypertension I10 Hypercholesterolemia E78.00
[2021-12-03] MEDS ORDERED: TICAGRELOR 90 MG TAB PO SCH (21:00)
--- NOTE | 2021-12-03 21:50 | Electrocardiogram Report ---
Test Reason : Blood Pressure : / mmHG Vent. Rate : 046 BPM Atrial Rate : 046 BPM P-R Int : 240 ms QRS Dur : 130 ms QT Int : 492 ms P-R-T Axes : 084 -35 -22 degrees QTc Int : 430 ms Sinus bradycardia with 1st degree A-V block Left axis deviation Non-specific intra-ventricular conduction block Abnormal ECG When compared with ECG of 07-NOV-2014 14:18, QRS duration has increased T wave inversion no longer evident in Anterolateral leads Confirmed by João Rousseau ([id number]) on 12/03/2021 9:50:18 PM Referred By: João Rousseau Confirmed By:João Rousseau
--- NOTE | 2021-12-04 05:41 | Electrocardiogram Report ---
Test Reason : Blood Pressure : / mmHG Vent. Rate : 049 BPM Atrial Rate : 049 BPM P-R Int : 248 ms QRS Dur : 118 ms QT Int : 486 ms P-R-T Axes : 000 -28 -33 degrees QTc Int : 439 ms Sinus bradycardia with 1st degree A-V block Minimal voltage criteria for LVH, may be normal variant Septal infarct , age undetermined T wave abnormality, consider anterolateral ischemia Abnormal ECG When compared with ECG of 02-DEC-2021 12:56, T wave inversion now evident in Anterolateral leads Confirmed by João Rousseau ([id number]) on 12/04/2021 5:40:35 AM Referred By: João Rousseau Confirmed By:João Rousseau
[2021-12-04] MEDS ORDERED: metFORMIN HCL 500 MG TAB PO SCH (08:00)
--- NOTE | 2021-12-04 16:23 | Electrocardiogram Report ---
Test Reason : Blood Pressure : / mmHG Vent. Rate : 049 BPM Atrial Rate : 049 BPM P-R Int : 248 ms QRS Dur : 118 ms QT Int : 486 ms P-R-T Axes : 000 -28 -33 degrees QTc Int : 439 ms Sinus bradycardia with 1st degree A-V block Minimal voltage criteria for LVH, may be normal variant Septal infarct , age undetermined T wave abnormality, consider anterolateral ischemia Abnormal ECG When compared with ECG of 02-DEC-2021 12:56, T wave inversion now evident in Anterolateral leads Confirmed by João Rousseau ([id number]) on 12/04/2021 5:40:35 AM Also confirmed by João Rousseau ([id number]), editor managing director Rodrigo Crespo ([id number]) on 12/04/2021 4:22:33 PM Referred By: João Rousseau Confirmed By:João Rousseau
== END 2021-12-03 17:37 | disposition home or self-care (01) ==
LOC: CC 08:17 → 2S 08:17
DX: Z79.890 Hormone replacement therapy; I25.118 Atherosclerotic heart disease of native coronary artery with other forms of angina pectoris; I20.8 Other forms of angina pectoris; E11.9 Type 2 diabetes mellitus without complications; Z79.899 Other long term (current) drug therapy; C67.9 Malignant neoplasm of bladder, unspecified; E78.00 Pure hypercholesterolemia, unspecified; I10 Essential (primary) hypertension; R94.39 Abnormal result of other cardiovascular function study; F17.290 Nicotine dependence, other tobacco product, uncomplicated; Z82.49 Family history of ischemic heart disease and other diseases of the circulatory system; Z79.82 Long term (current) use of aspirin; E78.5 Hyperlipidemia, unspecified

== ENCOUNTER 2024-02-23 13:56 | Inpatient (IN) ==
[2024-02-23 14:38] LABS: iSTAT Blood Urea Nitrogen > 140 mg/dl (7-18); iSTAT Carbon Dioxide 19 mmol/L (24-31); iSTAT Chloride 100 mmol/L (101-112); iSTAT Creatinine 6.9 mg/dl (0.6-1.3); iSTAT Glucose 228 mg/dl (70-99); iSTAT Hematocrit 55 % (42-52); iSTAT Hemoglobin 18.7 g/dl (14.0-18.0); iSTAT Ionized Calcium 0.96 mmol/l (1.12-1.32); iSTAT Potassium 3.7 mmol/L (3.3-5.0); iSTAT Sodium 135 mmol/L (135-144)
[2024-02-23] MEDS: SODIUM CHLORIDE 0.9% 1,000 ML IV SCH ×2 (14:39→15:26)
[2024-02-23 14:51] LABS: Basophils # (auto) 0.03 K/uL (0.00-0.20); Basophils % (auto) 0.3 %; Eosinophils # (auto) 0.07 K/uL (0.00-0.50); Eosinophils % (auto) 0.8 %; Immature Granulocytes # (auto) 0.09 K/uL (0.01-0.20); Lymphocytes # (auto) 1.13 K/uL (1.20-3.40); Lymphocytes % (auto) 12.9 %; Mean Corpuscular Hemoglobin 30.2 pg (25.0-34.0); Mean Corpuscular Volume 88.8 fL (80.0-100.0); Mean Platelet Volume 12.4 fL (9.4-12.4); Monocytes # (auto) 0.37 K/uL (0.11-0.59); Monocytes % (auto) 4.2 %; Neutrophils # (auto) 7.06 K/uL (1.40-6.50); Neutrophils % (auto) 80.8 %; Platelet Count 227 K/uL (130-400); RDW Coefficient of Variation 14.1 % (11.5-14.5); RDW Standard Deviation 45.6 fL (36.4-46.3); Red Blood Count 5.97 M/uL (4.70-6.10); White Blood Count 8.75 K/ul (4.8-10.8)
[2024-02-23 15:15] LABS: Alanine Aminotransferase 9 U/L (7-52); Albumin Globulin Ratio 1.3 (0.9-2); Albumin Level 4.1 gm/dl (3.4-5.0); Alkaline Phosphatase 97 U/L (34-104); Anion Gap 21 (3-11); Aspartate Aminotransferase 10 U/L (13-39); Bilirubin,Total 0.7 mg/dl (0.2-1.0); Calcium 9.2 mg/dl (8.6-10.3); Carbon Dioxide 21 mmol/L (21-32); Chloride 93 mmol/L (98-107); Est GFR (African American) 9.9 ml/min; Est GFR (Non-African American) 8.5 ml/min; Globulin 3.1 gm/dl (2.5-4.0); Glucose 236 mg/dl (70-99(Fasting)); Magnesium 2.5 mg/dl (1.7-2.4); Potassium 3.8 mmol/L (3.5-5.1); Sodium 135 mmol/L (136-145); Total Protein 7.2 gm/dl (6.0-8.3); Troponin I High Sensitivity 20.7 pg/ml (0-20)
[2024-02-23 15:19] LABS: Thyroid Stimulating Hormone 9.014 uIu/ml (0.300-4.500)
[2024-02-23 15:20] LABS: Blood Urea Nitrogen 172 mg/dl (6-23)
[2024-02-23 15:21] LABS: BUN Creatinine Ratio 28.3 (10-20)
[2024-02-23 15:43] LABS: Adenovirus PCR Not Detected (NotDetected); Bordetella parapertussis PCR Not Detected (NotDetected); Bordetella pertussis PCR Not Detected (NotDetected); Chlamydia pneumoniae PCR Not Detected (NotDetected); Coronavirus 229E PCR Not Detected (NotDetected); Coronavirus CoV-2 (COVID19)PCR Not Detected (NotDetected); Coronavirus HKU1 PCR Not Detected (NotDetected); Coronavirus NL63 PCR Not Detected (NotDetected); Coronavirus OC43PCR Not Detected (NotDetected); Human Metapneumovirus PCR Not Detected (NotDetected); Influenza A PCR Not Detected (NotDetected); Influenza B PCR Not Detected (NotDetected); Mycoplasma pneumoniae PCR Not Detected (NotDetected); Parainfluenza Virus 1 PCR Not Detected (NotDetected); Parainfluenza Virus 2 PCR Not Detected (NotDetected); Parainfluenza Virus 3 PCR Not Detected (NotDetected); Parainfluenza Virus 4 PCR Not Detected (NotDetected); Respiratory Syncytial VirusPCR Not Detected (NotDetected); Rhinovirus/Enterovirus PCR Not Detected (NotDetected)
--- NOTE | 2024-02-23 15:59 | Emergency Department Note ---
Impression & Plan Acute kidney injury, Vomiting, Elevated lactic acid level, Dehydration, severe ED Provider Note CHIEF COMPLAINT: Vomiting, near syncope HISTORY OF PRESENT ILLNESS: This 73-year-old male patient With past medical history of diabetes, recurrent vomiting, current kidney disease, bladder carcinoma a coronary artery dissection, CAD, hypercholesterolemia, hypertension, hypothyroid reflux, presents to the emergency department After being found somewhat disoriented and appearing at a truckstop. Patient seats he was there to meet someone who was going to take him for bloodwork. A bystander found him and escorted him to the bathroom where he nearly passed out. He has vomited several times and has been vomiting for the better part of a week. He states he was here two weeks ago with very similar symptoms and was given IV fluids. Patient denies any significant diarrhea, he cannot eat. He has been taking his pills but feels as though he vomits them up. REVIEW OF SYSTEMS: A review of systems was performed with positives and pertinent negatives listed in the history of present illness. 10 systems were reviewed and are otherwise negative. ALLERGIES: see below MEDICATIONS: see below PMH: see below SOCIAL HISTORY: see below DDx: Dehydration, viral illness, pancreatitis, reflux, bowel obstruction, Renal failure, electrolyte abnormality, foodborne process, Malignancy among others. PHYSICAL EXAM: Vital signs reviewed. hypotensive General: Chronically ill appearing 73 year-old male, . Pale and appearance HEENT: No scleral icterus, PERRLA, neck supple. Dry his membranes. Cardiovascular: Regular rate and rhythm, no extra sounds. Occasional ectopy Pulmonary: Clear to auscultation bilaterally, normal work of breathing. Abdomen: Soft, nontender, nondistended, positive bowel sounds. Musculoskeletal: Atraumatic, no peripheral edema. Neurologic: Patient somnolent but arousable, answers questions mostly appropriately. Danielle commands. Moves all extremities equally. Skin: Warm, dry, no rash EMERGENCY DEPARTMENT COURSE/MDM: This patient was evaluated and appeared to be in no significant distress. IV access was obtained and laboratory work withdrawn. The patient was placed a personnel monitor and noted to be in a sinus rhythm. Laboratory work is significant for an acute renal failure with a creatinine of 6.08. Patient was hypotensive and immediately hydrated with 1 L of normal saline solution. Patient was also noted to be hypoxic and placed on 3 L nasal cannula oxygen. He denied any history oxygen requirement. The ideology of the patient is unclear. IV contrast was not able to be administered given the patient's creatinine however CT imaging of the chest, abdomen and pelvis was performed. Previous imaging had been performed two weeks ago without any clear obstructive pathology to the kidneys. CT imaging as ordered above was negative for acute process, adrenal gland mass on the right is stable and again. Patient did not provide a specimen well in the emergency department. Lactate is elevated, blood pressure is hypotensive and blood cultures are pending. Patient was medicated with 2 g of IV ceftriaxone for empiric coverage. Additional IV fluids were ordered based on a 30 mL per kilogram ideal bodyweight. The case was discussed with the hospital service who will evaluate the patient for admission and for the management. MONITORING: An order for cardiac monitoring was placed and the patient is noted to be in a Sinus rhythm with PVCs at 56 beats per minute. RADIOLOGY: Chest x-ray to my interpretation no focal on consolidation or failure. Chest CT:IMPRESSION: 1. No acute process within the chest. 2. Emphysema. 3. Mild bronchial wall thickening. 4. Stable complex right adrenal gland mass. This is better appreciated on the same day abdomen and pelvis CT. abdomen/pelvis CT:IMPRESSION: 1. No acute abnormalities are seen in this patient with vomiting. 2. 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 3. Diverticulosis without diverticulitis. EKG: to my interpretation reveals a sinus rhythm first-degree AV block at 65 bpm with PVC appreciated. Left access deviation with non-specific interventricular conduction delay, previous septal infarct QTC is 457. DISPOSITION: admission I have personally spent 35 minutes of critical care time in the direct management of this patient. This was a life/limb threatening event. This 35 minutes is in excess of all separately billable procedures. Past Med/Surg History Problem List (Updated 02/25/24 @ 15:22 by Tali Nielsen MD) Dehydration, severe (Acute) Elevated lactic acid level (Acute) Vomiting (Acute) Acute kidney injury (Acute) Metabolic acidosis Acute kidney injury Nausea vomiting and diarrhea Diarrhea Type 2 diabetes mellitus with obesity Type 2 diabetes with stage 3 chronic kidney disease GFR 30-59 Chronic kidney disease, stage 3 Tobacco pipe smoker History of colon polyps Bladder carcinoma (Acute) Coronary artery dissection Status post insertion of drug-eluting stent into left anterior descending artery -- Mid LAD SYLVIE deployed 12/02/21 for angina and an abnormal stress echo. -- Distal LAD SYLVIE deployed 12/03/21 for distal LAD dissection. Cataract Benign prostate hyperplasia (Acute) CAD in [place] artery (Acute) PCI of mid LAD 12/02/21 with SYLVIE (complicated by distal LAD dissection); prompted PCI of distal LAD dissection with SYLVIE 12/03/21 Hypercholesterolemia (Acute) Hypertension (Acute) Hypothyroidism (Acute) Laryngopharyngeal reflux (Acute) History Spinal stenosis (Acute) Medical History Hx of bladder cancer Surgical History History of cataract surgery History of transurethral resection of bladder tumor (TURBT) Hx of inguinal hernia surgery H/O transurethral destruction of bladder lesion Hx of colonoscopy S/P coronary artery stent placement Vocal cord polyp S/P tonsillectomy History of knee surgery History of tooth extraction Family History Father Coronary heart disease Grandfather (Paternal) Lung cancer Grandfather (Maternal) Cancer Mother Breast cancer Brother Colorectal cancer Brother Aortic aneurysm Denies family history of Ovarian cancer Prostate cancer Myocardial infarction Social History Smoking Status: Current every day smoker Tobacco Type: Pipe Age Started Using Tobacco: 42; Cigarettes Per Day: smokes 2-3 per day- advised; Second Hand Exposure: Yes ( A CHILD); Do You Dip or Chew Tobacco: No; Hx Alcohol Use: Yes Alcohol type: beer Hx Substance Use: No Preferred Language: Luxembourger Communication Ability: Effective Visual Impairment: No Limitations Hearing Ability: Normal Product Safety Associate Required: No Beliefs That Will Affect Care: None marital status: Current Living Situation: Alone Current Living Situation Comment: home alone current occupational status: retired Feels Safe at Home: Yes Childhood Exposure to Second-Hand Smoke: Yes Dental Care, Regularly: No Physical Activity Frequency: Daily Seatbelt Use: always Sunscreen Use: No Assistive Devices: None Allergies Allergies Allergy/AdvReac Type Severity Reaction Status Date / Time iodine Allergy Intermediate RASH AND Verified 02/11/24 10:19 HIVES Home Meds Home Medications Medication Instructions Recorded Confirmed triamterene 37.5 1 tab PO QAM 01/25/24 02/23/24 mg-hydrochlorothiazide 25 mg tablet levothyroxine 175 mcg tablet 175 mcg PO QAM 02/10/24 02/23/24 aspirin 81 mg tablet,delayed 81 mg PO QAM 02/23/24 02/23/24 release Previous Rx's Medication Instructions Recorded nitroglycerin 0.4 mg sublingual 0.4 mg sublingual Q5M PRN chest 10/07/22 tablet pain #25 tabs fluoxetine 20 mg tablet 20 mg PO QAM #90 tabs 10/19/23 amlodipine 5 mg tablet 5 mg PO QAM #90 tabs 11/09/23 atorvastatin 40 mg tablet 40 mg PO QAM #90 tabs 11/09/23 lisinopril 20 mg tablet 20 mg PO QAM #90 tabs 11/09/23 metoprolol succinate 25 mg 25 mg PO QAM #90 tabs 11/09/23 tablet,extended release 24 hr semaglutide 7 mg tablet 7 mg PO DAILY #90 tabs 11/23/23 metformin 1,000 mg tablet 1,000 mg PO BID #180 tabs 02/08/24 ondansetron 4 mg disintegrating 4 mg PO Q6H PRN nausea and 02/10/24 tablet vomiting #14 tabs sucralfate 100 mg/mL oral 10 ml PO QID #420 mL 02/10/24 suspension (Carafate) Results & Data (ED) Vital Signs Vital Signs - 24 hr 02/23/24 14:11 02/23/24 14:27 02/23/24 14:29 Temperature 36.4 C L Temperature Source Oral Pulse Rate 58 L 64 Respiratory Rate 14 Respiratory Depth Normal Blood Pressure 56/34 L Blood Pressure [Left Arm] 74/55 L Blood Pressure Mean 41 Blood Pressure Mean [Left Arm] 61 Pulse Oximetry 88 L 95 Oxygen Delivery Method Room Air Nasal Cannula Oxygen Flow Rate 3 Sepsis Recent Fever Within 48 Hours No Sepsis New/Unexplained Change in Mental Status No Sepsis Action Taken by Nursing No Action Required 02/23/24 14:29 02/23/24 14:32 Temperature Temperature Source Pulse Rate Respiratory Rate Respiratory Depth Blood Pressure Blood Pressure [Left Arm] 93/62 L Blood Pressure Mean Blood Pressure Mean [Left Arm] 72 Pulse Oximetry 99 Oxygen Delivery Method Nasal Cannula Oxygen Flow Rate 3 Sepsis Recent Fever Within 48 Hours Sepsis New/Unexplained Change in Mental Status Sepsis Action Taken by [facility] Medications Current Medication List: was personally reviewed by me Laboratory Data Attestation: I reviewed the patient's lab results. 02/25/24 05:55 02/25/24 05:55 Lab Results 02/23/24 02/23/24 02/23/24 Range/Units 14:15 14:17 14:23 WBC 8.75 (4.8-10.8) K/ul RBC 5.97 (4.70-6.10) M/uL Hgb 18.0 (14.0-18.0) g/dl POC Hgb 18.7 H (14.0-18.0) g/dl Hct 53.0 H (42.0-52.0) % POC Hct 55 H (42-52) % MCV 88.8 (80.0-100.0) fL MCH 30.2 (25.0-34.0) pg MCHC 34.0 (32.0-36.0) g/dL RDW Std Deviation 45.6 (36.4-46.3) fL RDW Coeff of Alberto 14.1 (11.5-14.5) % Plt Count 227 (130-400) K/uL MPV 12.4 (9.4-12.4) fL Immature Gran % (Auto) 1.0 % Neut % (Auto) 80.8 % Lymph % (Auto) 12.9 % [place] % (Auto) 4.2 % Eos % (Auto) 0.8 % Baso % (Auto) 0.3 % Neut # (Auto) 7.06 H (1.40-6.50) K/uL Lymph # (Auto) 1.13 L (1.20-3.40) K/uL [place] # (Auto) 0.37 (0.11-0.59) K/uL Eos # (Auto) 0.07 (0.00-0.50) K/uL Baso # (Auto) 0.03 (0.00-0.20) K/uL Immature Gran # (Auto) 0.09 (0.01-0.20) K/uL POC Sodium 135 (135-144) mmol/L Sodium 135 L (136-145) mmol/L POC Potassium 3.7 (3.3-5.0) mmol/L Potassium 3.8 (3.5-5.1) mmol/L POC Chloride 100 L (101-112) mmol/L Chloride 93 L (98-107) mmol/L Carbon Dioxide 21 (21-32) mmol/L POC Total CO2 19 L (24-31) mmol/L Anion Gap 21 H (3-11) POC Anion Gap 20.0 (16-25) mmol/L POC BUN > 140 H* (7-18) mg/dl BUN 172 H (6-23) mg/dl Creatinine 6.08 H* (0.6-1.4) mg/dl POC Creatinine 6.9 H* (0.6-1.3) mg/dl Est Cr Clr Drug Dosing Not Reportable Est GFR ( Amer) 9.9 ml/min Est GFR (Non-Af Amer) 8.5 ml/min BUN/Creatinine Ratio 28.3 H (10-20) Glucose 236 H (70-99(Fasting)) mg/dl POC Glucose 197 H (70-99) mg/dl POC Glucose (other) 228 H (70-99) mg/dl Lactate (0.4-2.0) mmol/L Calcium 9.2 (8.6-10.3) mg/dl POC Ioniz Calcium Karo 0.96 L (1.12-1.32) mmol/l Magnesium 2.5 H (1.7-2.4) mg/dl Total Bilirubin 0.7 (0.2-1.0) mg/dl AST 10 L (13-39) U/L ALT 9 (7-52) U/L Alkaline Phosphatase 97 (34-104) U/L Troponin I High Sens 20.7 H (0-20) pg/ml Total Protein 7.2 (6.0-8.3) gm/dl Albumin 4.1 (3.4-5.0) gm/dl Globulin 3.1 (2.5-4.0) gm/dl Albumin/Globulin Ratio 1.3 (0.9-2) Procalcitonin 0.25 (0-0.5) ng/ml TSH 9.014 H (0.300-4.500) uIu/ml Free T4 1.47 (0.61-1.60) ng/dl Adenovirus (PCR) (NotDetected) B. pertussis DNA (PCR) (NotDetected) B.parapertussis DNA PCR (NotDetected) C. pneumoniae DNA (PCR) (NotDetected) Coronavirus OC43 (PCR) (NotDetected) Coronavirus HKU1 (PCR) (NotDetected) Coronavirus 229E (PCR) (NotDetected) SARS-CoV-2 (PCR) (NotDetected) Coronavirus NL63 (PCR) (NotDetected) Human Metapneumovir PCR (NotDetected) Influenza Type A (PCR) (NotDetected) Influenza Type B (PCR) (NotDetected) M. pneumoniae (PCR) (NotDetected) Parainfluenza 1 (PCR) (NotDetected) Parainfluenza 2 (PCR) (NotDetected) Parainfluenza 3 (PCR) (NotDetected) Parainfluenza 4 (PCR) (NotDetected) RSV (PCR) (NotDetected) Entero/Rhino (PCR) (NotDetected) 02/23/24 02/23/24 02/23/24 Range/Units 14:35 14:37 16:22 WBC (4.8-10.8) K/ul RBC (4.70-6.10) M/uL Hgb (14.0-18.0) g/dl POC Hgb (14.0-18.0) g/dl Hct (42.0-52.0) % POC Hct (42-52) % MCV (80.0-100.0) fL MCH (25.0-34.0) pg MCHC (32.0-36.0) g/dL RDW Std Deviation (36.4-46.3) fL RDW Coeff of Alberto (11.5-14.5) % Plt Count (130-400) K/uL MPV (9.4-12.4) fL Immature Gran % (Auto) % Neut % (Auto) % Lymph % (Auto) % [place] % (Auto) % Eos % (Auto) % Baso % (Auto) % Neut # (Auto) (1.40-6.50) K/uL Lymph # (Auto) (1.20-3.40) K/uL [place] # (Auto) (0.11-0.59) K/uL Eos # (Auto) (0.00-0.50) K/uL Baso # (Auto) (0.00-0.20) K/uL Immature Gran # (Auto) (0.01-0.20) K/uL POC Sodium (135-144) mmol/L Sodium (136-145) mmol/L POC Potassium (3.3-5.0) mmol/L Potassium (3.5-5.1) mmol/L POC Chloride (101-112) mmol/L Chloride (98-107) mmol/L Carbon Dioxide (21-32) mmol/L POC Total CO2 (24-31) mmol/L Anion Gap (3-11) POC Anion Gap (16-25) mmol/L POC BUN (7-18) mg/dl BUN (6-23) mg/dl Creatinine (0.6-1.4) mg/dl POC Creatinine (0.6-1.3) mg/dl Est Cr Clr Drug Dosing Est GFR ( Amer) ml/min Est GFR (Non-Af Amer) ml/min BUN/Creatinine Ratio (10-20) Glucose (70-99(Fasting)) mg/dl POC Glucose (70-99) mg/dl POC Glucose (other) (70-99) mg/dl Lactate 3.3 H* (0.4-2.0) mmol/L Calcium (8.6-10.3) mg/dl POC Ioniz Calcium Karo (1.12-1.32) mmol/l Magnesium (1.7-2.4) mg/dl Total Bilirubin (0.2-1.0) mg/dl AST (13-39) U/L ALT (7-52) U/L Alkaline Phosphatase (34-104) U/L Troponin I High Sens 15.3 D (0-20) pg/ml Total Protein (6.0-8.3) gm/dl Albumin (3.4-5.0) gm/dl Globulin (2.5-4.0) gm/dl Albumin/Globulin Ratio (0.9-2) Procalcitonin (0-0.5) ng/ml TSH (0.300-4.500) uIu/ml Free T4 (0.61-1.60) ng/dl Adenovirus (PCR) Not Detected (NotDetected) B. pertussis DNA (PCR) Not Detected (NotDetected) B.parapertussis DNA PCR Not Detected (NotDetected) C. pneumoniae DNA (PCR) Not Detected (NotDetected) Coronavirus OC43 (PCR) Not Detected (NotDetected) Coronavirus HKU1 (PCR) Not Detected (NotDetected) Coronavirus 229E (PCR) Not Detected (NotDetected) SARS-CoV-2 (PCR) Not Detected (NotDetected) Coronavirus NL63 (PCR) Not Detected (NotDetected) Human Metapneumovir PCR Not Detected (NotDetected) Influenza Type A (PCR) Not Detected (NotDetected) Influenza Type B (PCR) Not Detected (NotDetected) M. pneumoniae (PCR) Not Detected (NotDetected) Parainfluenza 1 (PCR) Not Detected (NotDetected) Parainfluenza 2 (PCR) Not Detected (NotDetected) Parainfluenza 3 (PCR) Not Detected (NotDetected) Parainfluenza 4 (PCR) Not Detected (NotDetected) RSV (PCR) Not Detected (NotDetected) Entero/Rhino (PCR) Not Detected (NotDetected) 02/23/24 Range/Units 16:24 WBC (4.8-10.8) K/ul RBC (4.70-6.10) M/uL Hgb (14.0-18.0) g/dl POC Hgb (14.0-18.0) g/dl Hct (42.0-52.0) % POC Hct (42-52) % MCV (80.0-100.0) fL MCH (25.0-34.0) pg MCHC (32.0-36.0) g/dL RDW Std Deviation (36.4-46.3) fL RDW Coeff of Alberto (11.5-14.5) % Plt Count (130-400) K/uL MPV (9.4-12.4) fL Immature Gran % (Auto) % Neut % (Auto) % Lymph % (Auto) % [place] % (Auto) % Eos % (Auto) % Baso % (Auto) % Neut # (Auto) (1.40-6.50) K/uL Lymph # (Auto) (1.20-3.40) K/uL [place] # (Auto) (0.11-0.59) K/uL Eos # (Auto) (0.00-0.50) K/uL Baso # (Auto) (0.00-0.20) K/uL Immature Gran # (Auto) (0.01-0.20) K/uL POC Sodium (135-144) mmol/L Sodium (136-145) mmol/L POC Potassium (3.3-5.0) mmol/L Potassium (3.5-5.1) mmol/L POC Chloride (101-112) mmol/L Chloride (98-107) mmol/L Carbon Dioxide (21-32) mmol/L POC Total CO2 (24-31) mmol/L Anion Gap (3-11) POC Anion Gap (16-25) mmol/L POC BUN (7-18) mg/dl BUN (6-23) mg/dl Creatinine (0.6-1.4) mg/dl POC Creatinine (0.6-1.3) mg/dl Est Cr Clr Drug Dosing Est GFR ( Amer) ml/min Est GFR (Non-Af Amer) ml/min BUN/Creatinine Ratio (10-20) Glucose (70-99(Fasting)) mg/dl POC Glucose (70-99) mg/dl POC Glucose (other) (70-99) mg/dl Lactate 2.8 H* (0.4-2.0) mmol/L Calcium (8.6-10.3) mg/dl POC Ioniz Calcium Karo (1.12-1.32) mmol/l Magnesium (1.7-2.4) mg/dl Total Bilirubin (0.2-1.0) mg/dl AST (13-39) U/L ALT (7-52) U/L Alkaline Phosphatase (34-104) U/L Troponin I High Sens (0-20) pg/ml Total Protein (6.0-8.3) gm/dl Albumin (3.4-5.0) gm/dl Globulin (2.5-4.0) gm/dl Albumin/Globulin Ratio (0.9-2) Procalcitonin (0-0.5) ng/ml TSH (0.300-4.500) uIu/ml Free T4 (0.61-1.60) ng/dl Adenovirus (PCR) (NotDetected) B. pertussis DNA (PCR) (NotDetected) B.parapertussis DNA PCR (NotDetected) C. pneumoniae DNA (PCR) (NotDetected) Coronavirus OC43 (PCR) (NotDetected) Coronavirus HKU1 (PCR) (NotDetected) Coronavirus 229E (PCR) (NotDetected) SARS-CoV-2 (PCR) (NotDetected) Coronavirus NL63 (PCR) (NotDetected) Human Metapneumovir PCR (NotDetected) Influenza Type A (PCR) (NotDetected) Influenza Type B (PCR) (NotDetected) M. pneumoniae (PCR) (NotDetected) Parainfluenza 1 (PCR) (NotDetected) Parainfluenza 2 (PCR) (NotDetected) Parainfluenza 3 (PCR) (NotDetected) Parainfluenza 4 (PCR) (NotDetected) RSV (PCR) (NotDetected) Entero/Rhino (PCR) (NotDetected) Administered Medications Aspirin (Aspirin 81 Mg Ectab) 81 mg PO [facility] Stop: 03/25/24 08:59 Last Admin: 02/25/24 10:07 Dose: 81 mg Documented By: Admin: 02/24/24 09:51 Dose: 81 mg Documented By: KATHY Atorvastatin Calcium (Atorvastatin 40 Mg Tab) 40 mg PO [facility] Stop: 03/25/24 08:59 Last Admin: 02/25/24 08:43 Dose: 40 mg Documented By: Admin: 02/24/24 09:51 Dose: 40 mg Documented By: KATHY Fluoxetine HCl (Fluoxetine Hcl 20 Mg Cap) 20 mg PO [facility] Stop: 03/25/24 08:59 Last Admin: 02/25/24 08:43 Dose: 20 mg Documented By: Admin: 02/24/24 09:51 Dose: 20 mg Documented By: KATHY Heparin Sodium (Porcine) (Heparin Sod 5,000 Unit/0.5 Ml Vial) 5,000 units SQ Q12 [facility] Stop: 03/24/24 20:59 Last Admin: 02/25/24 10:07 Dose: 5,000 units Documented By: Admin: 02/24/24 20:57 Dose: 5,000 units Documented By: Admin: 02/24/24 09:51 Dose: 5,000 units Documented By: Admin: 02/23/24 21:55 Dose: 5,000 units Documented By: SONYA Insulin Aspart (Insulin Aspart Per Unit Charge) 0 units SC ACHS [facility] [place] Stop: 03/25/24 11:29 Last Admin: 02/25/24 12:20 Dose: Not Given Documented By: Admin: 02/25/24 08:00 Dose: Not Given Documented By: Admin: 02/24/24 20:56 Dose: 1 units Documented By: ARASELI Co-signed By: BENTLEY Admin: 02/24/24 17:20 Dose: Not Given Documented By: Admin: 02/24/24 11:42 Dose: Not Given Documented By: KATHY Levothyroxine Sodium (Levothyroxine Sodium 175 Mcg Tablet) 175 mcg PO QAM [facility] [place] Stop: 03/25/24 08:59 Last Admin: 02/25/24 08:43 Dose: 175 mcg Documented By: Admin: 02/24/24 09:51 Dose: 175 mcg Documented By: KATHY Ondansetron HCl (Ondansetron Inj 2 Mg/Ml 2 Ml Vial) 4 mg IV Q6H PRN PRN Reason: Nausea Stop: 03/24/24 17:06 Last Admin: 02/24/24 03:58 Dose: 4 mg Documented By: Admin: 02/23/24 22:35 Dose: 4 mg Documented By: SONYA Discontinued Medications Sodium Chloride (Nss) 1,000 mls @ 999 mls/hr IV .Q1H1M [facility] [place] Stop: 02/23/24 15:30 Last Infusion: 02/23/24 15:53 Dose: Infused Documented By: Admin: 02/23/24 14:39 Dose: 999 mls/hr Documented By: KAILEE Sodium Chloride (Nss) 1,000 mls @ 125 mls/hr IV .Q8H [facility] [place] Stop: 02/23/24 22:29 Last Infusion: 02/23/24 18:19 Dose: Infused Documented By: Admin: 02/23/24 15:26 Dose: 125 mls/hr Documented By: IDRIS Ceftriaxone Sodium (Rocephin) 2,000 mg in 50 mls @ 100 mls/hr IV NOW STA Stop: 02/23/24 16:24 Last Infusion: 02/23/24 18:18 Dose: Infused Documented By: Admin: 02/23/24 17:26 Dose: 100 mls/hr Documented By: IDRIS Sodium Chloride (Nss) 1,000 mls @ 500 mls/hr IV .Q2H ONE Stop: 02/23/24 18:21 Last Infusion: 02/23/24 19:26 Dose: Infused Documented By: Admin: 02/23/24 17:26 Dose: 500 mls/hr Documented By: IDRIS Lactated Ringer's (Lr) 1,000 mls @ 125 mls/hr IV .Q8H SHANI Stop: 03/24/24 17:14 Last Admin: 02/25/24 11:02 Dose: Not Given Documented By: Infusion: 02/25/24 11:02 Dose: Infused Documented By: Admin: 02/25/24 05:00 Dose: 125 mls/hr Documented By: Infusion: 02/25/24 04:55 Dose: Infused Documented By: Admin: 02/24/24 20:55 Dose: 125 mls/hr Documented By: Infusion: 02/24/24 18:52 Dose: Infused Documented By: Admin: 02/24/24 10:52 Dose: 125 mls/hr Documented By: Infusion: 02/24/24 10:49 Dose: Infused Documented By: Admin: 02/24/24 02:49 Dose: 125 mls/hr Documented By: Infusion: 02/24/24 01:27 Dose: Infused Documented By: Admin: 02/23/24 17:27 Dose: 125 mls/hr Documented By: IDRIS Pantoprazole Sodium 40 mg/ (Syringe) 10 mls @ 5 mls/min IV NOW ONE Stop: 02/24/24 06:37 Last Admin: 02/24/24 07:48 Dose: 5 mls/min Documented By: KATHY Prochlorperazine 10 mg/ (Syringe) 10 mls @ 5 mls/min IV Q6H PRN PRN Reason: Nausea And Vomiting Stop: 03/25/24 09:00 Last Admin: 02/24/24 09:47 Dose: 5 mls/min Documented By: KATHY Lactated Ringer's (Lr) 1,000 mls @ 999 mls/hr IV .Q1H1M ONE Stop: 02/24/24 12:49 Last Infusion: 02/24/24 12:56 Dose: Infused Documented By: Admin: 02/24/24 11:51 Dose: 999 mls/hr Documented By: KATHY Magnesium Sulfate/Dextrose (Magnesium Sulfate / D5w) 1 gm in 100 mls @ 50 mls/hr IV Q2H SHANI Stop: 02/25/24 14:14 Last Infusion: 02/25/24 14:26 Dose: Infused Documented By: Admin: 02/25/24 12:17 Dose: 50 mls/hr Documented By: Infusion: 02/25/24 12:17 Dose: Infused Documented By: Admin: 02/25/24 10:27 Dose: 50 mls/hr Documented By: KATHY Metoclopramide HCl (Metoclopramide Hcl Inj 5 Mg/Ml 2 Ml Vial) 5 mg IV ONE ONE Stop: 02/24/24 02:11 Last Admin: 02/24/24 02:18 Dose: 5 mg Documented By: SONYA Potassium Chloride (Potassium Chloride Crtab 20 Meq Tabcr) 40 meq PO NOW STA Stop: 02/25/24 09:43 Last Admin: 02/25/24 10:27 Dose: 40 meq Documented By: KATHY Discharge Plan Visit Data Chief Complaint: Illness Stated Complaint: ILLNESS ED Provider: Tali Nielsen Discharge Problem: Acute kidney injury, Vomiting, Elevated lactic acid level, Dehydration, severe Patient Disposition: Admitted As Inpatient Discharge Instructions Interventions: ED Discharge Assessment Last Done: 02/23/24 18:44 Discharge Problem: Vomiting Qualifiers: Vomiting type: unspecified Nausea presence: with nausea Qualified Code(s): R 11.2 - Nausea with vomiting, unspecified
[2024-02-23 16:00] LABS: T4 Free Thyroxine 1.47 ng/dl (0.61-1.60)
--- NOTE | 2024-02-23 16:12 | XRay Report ---
XR chest 1V portable CLINICAL HISTORY: weakness TECHNIQUE: Single frontal radiograph of the chest was obtained. Comparison: Comparison is made to chest of 02/10/2024 FINDINGS: Exam is limited by underpenetration. Calcified aortic knob is seen. The lungs are clear. No evidence of pleural effusion or pneumothorax. IMPRESSION: No acute chest disease. ACT 112: Negative or not required by law. Electronically signed by: Ivan Haas M.D. 02/23/2024 4:11 PM
[2024-02-23] MEDS ORDERED: ACETAMINOPHEN 325 MG TAB PO PRN (17:07)
--- NOTE | 2024-02-23 17:11 | CT Scan Report ---
CT abd pelvis wo con CLINICAL HISTORY: severe ELTON, vomiting, syncope TECHNIQUE: Helical axial images of the abdomen and pelvis were obtained. Automated dose lowering tech niques and/or adjustment according to patient size were utilized for this exam. This exam was perfor med without intravenous contrast. COMPARISON: Comparison is made to CT abdomen pelvis 02/10/[address] abdomen pelvis 02/10/2024 FINDINGS: Lower chest: Bibasilar atelectasis versus scarring is seen. Severe atherosclerotic disease is seen. Liver: Unremarkable. No focal lesions are seen. Gallbladder and biliary tree: Cholelithiasis is seen without evidence of cholecystitis. No intra- or extrahepatic biliary ductal dilation. Pancreas: Unremarkable, no focal lesions. Spleen: Unremarkable. Adrenals: Bilateral adrenal gland thickening is seen. Complex right adrenal mass and adrenal adenoma are seen. Kidneys and ureters: Perinephric stranding is seen. Bladder: Limited evaluation due to underdistention. Reproductive organs: Unremarkable. Bowel: Diverticulosis is seen without diverticulitis. The appendix is normal. Lymph nodes Retroperitoneal: Unremarkable. Pelvic: Unremarkable. Mesenteric: Unremarkable. Peritoneum: Normal. Vessels: Unremarkable. Abdominal wall: Left fat containing inguinal hernia. Bones: Degenerative changes in the visualized spine. Multilevel compression deformities are seen. IMPRESSION: 1. No acute abnormalities are seen in this patient with vomiting. 2. 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 3. Diverticulosis without diverticulitis. ACT 112: Negative or not required by law. Electronically signed by: Ivan Haas M.D. 02/23/2024 5:09 PM
--- NOTE | 2024-02-23 17:16 | CT Scan Report ---
CT chest diagnostic wo con CT DOSE: 1822.33 mGy.cm HISTORY: recurrent vomiting, ELTON TECHNIQUE: Multiaxial CT images of the chest were performed without contrast. A dose lowering techni que was utilized adhering to the principles of ALARA. COMPARISON: Abdomen and pelvis CT 02/10/2024. Abdomen and pelvis CT 10/07/2012. FINDINGS: Multiple old, healed bilateral rib fractures. Multiple compression deformities seen within the thoracolumbar spine. These are likely chronic. No acute fractures within the chest. The central a irways are patent. Mild central bronchial wall thickening. No pneumothorax. No pleural effusions. Emp hysema. No focal lung consolidations to suggest pneumonia. Small area of groundglass densities within the right lower lobe posteriorly favor dependent change. No evidence for pulmonary edema. Stable fat and soft tissue containing mass within the right adrenal gland compared to a [address] Therefore, this is likely benign. Chronic left adrenal gland thickening again noted. The abdomin al structures will be reported on the same day abdomen and pelvis CT there is no pericardial effusion . The heart is normal in size. Severe coronary artery calcifications are noted. No mediastinal or hil ar lymphadenopathy. Normal esophagus. Mild calcified plaque within the normal caliber thoracic aorta. IMPRESSION: 1. No acute process within the chest. 2. Emphysema. 3. Mild bronchial wall thickening. 4. Stable complex right adrenal gland mass. This is better appreciated on the same day abdomen and pe lvis CT. ACT 112: Negative or not required by law. Electronically signed by: Ruslan Condon M.D. 02/23/2024 5:14 PM
--- NOTE | 2024-02-23 17:21 | History & Physical Report ---
Date of Service February 23, 2024 Assessment & Plan (1) Acute on chronic renal insufficiency: Plan: Patient presents with diarrhea since Thursday, nausea vomiting Creatinine elevated up to 6, Creatinine 1.5 Suspect prerenal causes, no obstruction on the CAT scan abdomen pelvis, patient on diuretics, lisinopril IV fluids Monitor BMP Consult nephrology Obtain stool study (2) Chronic kidney disease, stage 3: Plan: Baseline creatinine 1.5 (3) Tobacco pipe smoker: Plan: Consulted on smoking cessation (4) Bladder carcinoma: Plan: In remission, abnormalities on CT abdomen pelvis (5) CAD in [place] artery: Plan: Denies chest pain Continue aspirin and statin Will hold metoprolol and other medicines secondary to hypotension (6) Hypothyroidism: Plan: Continue Synthroid (7) Diarrhea: Plan: Obtain stool study IV fluids History of Present Illness Chief Complaint: Severe diarrhea, intractable nausea vomiting Primary Care Provider: Maeve Doyle MD This is a 73-year-old male with multiple medical problems, significant for hypertension, CAD status post drug-eluting stent 12/11/2021, diabetes mellitus type 2, hypothyroidism, CKD stage III plan creatinine 1.5, bladder cancer, status post TURBT , 03/25/2022 patient presents to the hospital with intractable diarrhea since Thursday, after he ate at a truck stop, he reports nausea and vomiting as well, was able to keep down water and milk occasionally. He reports feeling unwell for at least 2-week, in the ER he is blood work is consistent with ELTON, fattening is 6, BUN 140, and is hypertensive, started on IV fluids, last systolic blood pressure 100, patient denies any chest pain or shortness of breath, no abdominal pain, urinated less times this morning. CT abdomen pelvis no acute abnormalities Allergies Allergy/AdvReac Type Severity Reaction Status Date / Time iodine Allergy Intermediate RASH AND Verified 02/11/24 10:19 HIVES Home Medications Medication Instructions Recorded Confirmed Type nitroglycerin 0.4 mg sublingual 0.4 mg sublingual Q5M PRN chest 10/07/22 02/23/24 Rx tablet pain #25 tabs fluoxetine 20 mg tablet 20 mg PO QAM #90 tabs 10/19/23 02/23/24 Rx amlodipine 5 mg tablet 5 mg PO QAM #90 tabs 11/09/23 02/23/24 Rx atorvastatin 40 mg tablet 40 mg PO QAM #90 tabs 11/09/23 02/23/24 Rx lisinopril 20 mg tablet 20 mg PO QAM #90 tabs 11/09/23 02/23/24 Rx metoprolol succinate 25 mg 25 mg PO QAM #90 tabs 11/09/23 02/23/24 Rx tablet,extended release 24 hr semaglutide 7 mg tablet 7 mg PO DAILY #90 tabs 11/23/23 02/23/24 Rx triamterene 37.5 1 tab PO QAM 01/25/24 02/23/24 History mg-hydrochlorothiazide 25 mg tablet metformin 1,000 mg tablet 1,000 mg PO BID #180 tabs 02/08/24 02/23/24 Rx levothyroxine 175 mcg tablet 175 mcg PO QAM 02/10/24 02/23/24 History ondansetron 4 mg disintegrating 4 mg PO Q6H PRN nausea and 02/10/24 02/23/24 Rx tablet vomiting #14 tabs sucralfate 100 mg/mL oral 10 ml PO QID #420 mL 02/10/24 02/23/24 Rx suspension (Carafate) aspirin 81 mg tablet,delayed 81 mg PO QAM 02/23/24 02/23/24 History release Past Med/Surg History Problem List (Updated 02/23/24 @ 17:20 by Lacie Quijano MD) Diarrhea Adrenal mass, right (Acute) Dehydration (Acute) Acute on chronic renal insufficiency (Acute) Gastritis (Acute) Type 2 diabetes mellitus with obesity Type 2 diabetes with stage 3 chronic kidney disease GFR 30-59 Chronic kidney disease, stage 3 Tobacco pipe smoker History of colon polyps Bladder carcinoma (Acute) Coronary artery dissection Status post insertion of drug-eluting stent into left anterior descending artery -- Mid LAD SYLVIE deployed 12/02/21 for angina and an abnormal stress echo. -- Distal LAD SYLVIE deployed 12/03/21 for distal LAD dissection. Cataract Benign prostate hyperplasia (Acute) CAD in [place] artery (Acute) PCI of mid LAD 12/02/21 with SYLVIE (complicated by distal LAD dissection); prompted PCI of distal LAD dissection with SYLVIE 12/03/21 Hypercholesterolemia (Acute) Hypertension (Acute) Hypothyroidism (Acute) Laryngopharyngeal reflux (Acute) History Spinal stenosis (Acute) Medical History Hx of bladder cancer Surgical History History of cataract surgery History of transurethral resection of bladder tumor (TURBT) Hx of inguinal hernia surgery H/O transurethral destruction of bladder lesion Hx of colonoscopy S/P coronary artery stent placement Vocal cord polyp S/P tonsillectomy History of knee surgery History of tooth extraction Family History Father Coronary heart disease Grandfather (Paternal) Lung cancer Grandfather (Maternal) Cancer Mother Breast cancer Brother Colorectal cancer Brother Aortic aneurysm Denies family history of Ovarian cancer Prostate cancer Myocardial infarction Social History Smoking Status: Current every day smoker Age Started Using Tobacco: 42; Cigarettes Per Day: smokes 2-3 per day- advised; Second Hand Exposure: Yes ( A CHILD); Do You Dip or Chew Tobacco: No; Hx Alcohol Use: Yes Alcohol type: beer Hx Substance Use: Yes (smokes marijuana occasionally) Prescribed Medications: Marijuana Last Used Substance Other:: LAST USED>LAST WEEK (ADVISED) Preferred Language: Spanish Communication Ability: Effective Visual Impairment: No Limitations Hearing Ability: Normal Wax Coating Machine Tender Required: No Beliefs That Will Affect Care: None marital status: Current Living Situation: Alone current occupational status: retired Feels Safe at Home: Yes Childhood Exposure to Second-Hand Smoke: Yes Dental Care, Regularly: No Physical Activity Frequency: Daily Seatbelt Use: always Sunscreen Use: No Assistive Devices: None Review of Systems Review of Systems: All systems reviewed & are unremarkable except as noted in Subjective Physical Exam Physical Exam: PHYSICAL EXAM: Vital signs reviewed. General: Ill-appearing. HEENT: No scleral icterus, PERRLA, neck supple. Atraumatic. Cardiovascular: Regular rate and rhythm, no extra sounds. Pulmonary: Clear to auscultation bilaterally, normal work of breathing. Abdomen: Soft, nontender, nondistended, positive bowel sounds. Musculoskeletal: Atraumatic, no peripheral edema. Neurologic: Patient awake alert and oriented x 3, speech is clear Skin: Warm, dry, no rash Results & Data Results & Data Vital Signs (Past 12 Hours) Vital Signs Temp Pulse Resp BP BP Pulse Ox O2 Del Method 02/23/24 16:50 104/76 02/23/24 16:50 97 Nasal Cannula 02/23/24 16:30 111/82 02/23/24 16:24 58 L 13 98 02/23/24 16:20 98/72 L 02/23/24 16:20 98/72 L 02/23/24 16:15 63 17 02/23/24 16:09 62 18 02/23/24 16:02 94/71 L 02/23/24 15:39 58 L 14 94 Nasal Cannula 02/23/24 15:33 58 L 15 100 Nasal Cannula 02/23/24 15:32 91/65 L 02/23/24 15:32 91/65 L 02/23/24 15:32 91/65 L 02/23/24 15:27 57 L 12 100 02/23/24 15:15 55 L 12 99 02/23/24 15:03 57 L 14 96 02/23/24 15:00 110/70 02/23/24 14:48 63 12 93 02/23/24 14:32 93/62 L 02/23/24 14:29 99 Nasal Cannula 02/23/24 14:29 64 02/23/24 14:27 74/55 L 95 Nasal Cannula 02/23/24 14:12 61 19 02/23/24 14:11 36.4 C L 58 L 14 56/34 L 88 L Room Air O2 Flow Rate 02/23/24 16:50 02/23/24 16:50 3 02/23/24 16:30 02/23/24 16:24 02/23/24 16:20 02/23/24 16:20 02/23/24 16:15 02/23/24 16:09 02/23/24 16:02 02/23/24 15:39 3 02/23/24 15:33 3 02/23/24 15:32 02/23/24 15:32 02/23/24 15:32 02/23/24 15:27 02/23/24 15:15 02/23/24 15:03 02/23/24 15:00 02/23/24 14:48 02/23/24 14:32 02/23/24 14:29 3 02/23/24 14:29 02/23/24 14:27 3 02/23/24 14:12 02/23/24 14:11 Laboratory Results Abnormal lab results 02/23/24 02/23/24 02/23/24 Range/Units 14:15 14:17 14:23 POC Hgb 18.7 H (14.0-18.0) g/dl Hct 53.0 H (42.0-52.0) % POC Hct 55 H (42-52) % Neut # (Auto) 7.06 H (1.40-6.50) K/uL Lymph # (Auto) 1.13 L (1.20-3.40) K/uL Sodium 135 L (136-145) mmol/L POC Chloride 100 L (101-112) mmol/L Chloride 93 L (98-107) mmol/L POC Total CO2 19 L (24-31) mmol/L Anion Gap 21 H (3-11) POC BUN > 140 H* (7-18) mg/dl BUN 172 H (6-23) mg/dl Creatinine 6.08 H* (0.6-1.4) mg/dl POC Creatinine 6.9 H* (0.6-1.3) mg/dl BUN/Creatinine Ratio 28.3 H (10-20) Glucose 236 H (70-99(Fasting)) mg/dl POC Glucose 197 H (70-99) mg/dl POC Glucose (other) 228 H (70-99) mg/dl Lactate (0.4-2.0) mmol/L POC Ioniz Calcium Karo 0.96 L (1.12-1.32) mmol/l Magnesium 2.5 H (1.7-2.4) mg/dl AST 10 L (13-39) U/L Troponin I High Sens 20.7 H (0-20) pg/ml TSH 9.014 H (0.300-4.500) uIu/ml 02/23/24 02/23/24 Range/Units 14:37 16:24 POC Hgb (14.0-18.0) g/dl Hct (42.0-52.0) % POC Hct (42-52) % Neut # (Auto) (1.40-6.50) K/uL Lymph # (Auto) (1.20-3.40) K/uL Sodium (136-145) mmol/L POC Chloride (101-112) mmol/L Chloride (98-107) mmol/L POC Total CO2 (24-31) mmol/L Anion Gap (3-11) POC BUN (7-18) mg/dl BUN (6-23) mg/dl Creatinine (0.6-1.4) mg/dl POC Creatinine (0.6-1.3) mg/dl BUN/Creatinine Ratio (10-20) Glucose (70-99(Fasting)) mg/dl POC Glucose (70-99) mg/dl POC Glucose (other) (70-99) mg/dl Lactate 3.3 H* 2.8 H* (0.4-2.0) mmol/L POC Ioniz Calcium Karo (1.12-1.32) mmol/l Magnesium (1.7-2.4) mg/dl AST (13-39) U/L Troponin I High Sens (0-20) pg/ml TSH (0.300-4.500) uIu/ml Diagnostic Findings Chest X-Ray 02/23/24 14:29 XR chest 1V portable CLINICAL HISTORY: weakness TECHNIQUE: Single frontal radiograph of the chest was obtained. Comparison: Comparison is made to chest of 02/10/2024 FINDINGS: Exam is limited by underpenetration. Calcified aortic knob is seen. The lungs a re clear. No evidence of pleural effusion or pneumothorax. IMPRESSION: No acute chest disease. ACT 112: Negative or not required by law. Electronically signed by: Ivan Haas M.D. 02/23/2024 4:11 PM Abdomen/Pelvis CT 02/23/24 15:58 CT abd pelvis wo con CLINICAL HISTORY: severe ELTON, vomiting, syncope TECHNIQUE: Helical axial images of the abdomen and pelvis were obtained. Automated dose lowering techniques and/or adjustment according to patient size were utilized for this exam. This exam was performed without intravenous contrast. COMPARISON: Comparison is made to CT abdomen pelvis 02/10/[address] abdomen pelvis 02/10/2024 FINDINGS: Lower chest: Bibasilar atelectasis versus scarring is seen. Severe atherosclerotic disease is seen. Liver: Unremarkable. No focal lesions are seen. Gallbladder and biliary tree: Cholelithiasis is seen without evidence of cholecystitis. No intra- or extrahepatic biliary ductal dilation. Pancreas: Unremarkable, no focal lesions. Spleen: Unremarkable. Adrenals: Bilateral adrenal gland thickening is seen. Complex right adrenal mass and adrenal adenoma are seen. Kidneys and ureters: Perinephric stranding is seen. Bladder: Limited evaluation due to underdistention. Reproductive organs: Unremarkable. Bowel: Diverticulosis is seen without diverticulitis. The appendix is normal. Lymph nodes Retroperitoneal: Unremarkable. Pelvic: Unremarkable. Mesenteric: Unremarkable. Peritoneum: Normal. Vessels: Unremarkable. Abdominal wall: Left fat containing inguinal hernia. Bones: Degenerative changes in the visualized spine. Multilevel compression deformities are seen. IMPRESSION: 1. No acute abnormalities are seen in this patient with vomiting. 2. 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 3. Diverticulosis without diverticulitis. ACT 112: Negative or not required by law. Electronically signed by: Ivan Haas M.D. 02/23/2024 5:[address] 02/23/24 15:58 CT chest diagnostic wo con CT DOSE: 1822.33 mGy.cm HISTORY: recurrent vomiting, ELTON TECHNIQUE: Multiaxial CT images of the chest were performed without contrast. A dose lowering technique was utilized adhering to the principles of ALARA. COMPARISON: Abdomen and pelvis CT 02/10/2024. Abdomen and pelvis CT 10/07/2012. FINDINGS: Multiple old, healed bilateral rib fractures. Multiple compression deformities seen within the thoracolumbar spine. These are likely chronic. No acute fractures within the chest. The central airways are patent. Mild central bronchial wall thickening. No pneumothorax. No pleural effusions. Emphysema. No focal lung consolidations to suggest pneumonia. Small area of groundglass densities within the right lower lobe posteriorly favor dependent change. No evidence for pulmonary edema. Stable fat and soft tissue containing mass within the right adrenal gland compared to a [address] Therefore, this is likely benign. Chronic left adrenal gland thickening again noted. The abdominal structures will be reported on the same day abdomen and pelvis CT there is no pericardial effusion. The heart is normal in size. Severe coronary artery calcifications are noted. No mediastinal or hilar lymphadenopathy. Normal esophagus. Mild calcified plaque within the normal caliber thoracic aorta. IMPRESSION: 1. No acute process within the chest. 2. Emphysema. 3. Mild bronchial wall thickening. 4. Stable complex right adrenal gland mass. This is better appreciated on the same day abdomen and pelvis CT. ACT 112: Negative or not required by law. Electronically signed by: Ruslan Condon M.D. 02/23/2024 5:14 PM PG Care Time/CCT Total # of Minutes Spent Total Time Spent with Patient: Total time spent is greater than 50% in coordination of care (as documented) at patient's floor/unit and/or counseling patient: Coding Level of Care Code 77899 INT INP/OBS CARE 3/75MIN Diagnoses Acute on chronic renal insufficiency N28.9; N18.9 Chronic kidney disease, stage 3 N18.30 Tobacco pipe smoker F17.290 Bladder carcinoma C67.9 CAD in [place] artery I25.10 Hypothyroidism E03.9 Diarrhea R19.7
[2024-02-23] MEDS: SODIUM CHLORIDE 0.9% 1,000 ML IV ONE (17:26)
[2024-02-23] MEDS: cefTRIAXone SODIUM 2,000 MG/50 ML BAG IV STA (17:26)
[2024-02-23] MEDS: LACTATED RINGER'S 1,000 ML IV SCH (17:27)
[2024-02-23] MEDS ORDERED: Patient's HEIGHT &/or WEIGHT Needed SCH (19:30)
[2024-02-23] MEDS ORDERED: NITROGLYCERIN SL 0.4 MG/TAB TAB SL PRN (19:35)
[2024-02-23] MEDS: HEPARIN SOD 5,000 UNIT/0.5 ML VIAL SQ SCH (21:55)
[2024-02-23 22:10] LABS: Appearance Urine Clear (Clear); Bacteria Urine Automated None Seen (None Seen); Bilirubin Urine Negative (Negative); Blood Urine Negative (Negative); Color Urine Yellow; Epithelial Cell Urine Auto 0-2 /hpf (0-2); Glucose Urine UA Negative (Negative); Ketones Urine Trace (Negative); Leukocyte Esterase Urine Negative (Negative); Nitrite Urine Negative (Negative); Protein Urine Trace (Negative); RBC Urine Automated 0-2 /hpf (0-2); Specific Gravity Urine 1.015 (1.000-1.030); Urobilinogen Urine Negative (Negative); WBC Urine Automated 0-5 /hpf (0-5)
[2024-02-23] MEDS: ONDANSETRON INJ 2 MG/ML 2 ML VIAL IV PRN (22:35)
[2024-02-23 23:50] LABS: Anion Gap 18 (3-11); Calcium 8.3 mg/dl (8.6-10.3); Carbon Dioxide 17 mmol/L (21-32); Chloride 103 mmol/L (98-107); Creatinine Clr Calc Pharmacy 14.6 ml/min; Est GFR (African American) 12.4 ml/min; Est GFR (Non-African American) 10.7 ml/min; Glucose 91 mg/dl (70-99(Fasting)); Sodium 138 mmol/L (136-145)
[2024-02-24 00:03] LABS: BUN Creatinine Ratio 28.3 (10-20); Blood Urea Nitrogen 142 mg/dl (6-23)
[2024-02-24] MEDS: METOCLOPRAMIDE HCL INJ 5 MG/ML 2 ML VIAL IV ONE (02:18)
[2024-02-24] MEDS: PANTOprazole 40 MG in SYRINGE 0 ML IV ONE (07:48)
[2024-02-24 09:43] LABS: Hemoglobin 17.2 g/dl (14.0-18.0); Mean Corpuscular Hemoglobin 30.5 pg (25.0-34.0); Mean Corpuscular Hgb Conc 33.1 g/dL (32.0-36.0); Mean Corpuscular Volume 92.2 fL (80.0-100.0); Mean Platelet Volume 11.4 fL (9.4-12.4); Platelet Count 157 K/uL (130-400); RDW Coefficient of Variation 14.5 % (11.5-14.5); RDW Standard Deviation 48.5 fL (36.4-46.3); Red Blood Count 5.64 M/uL (4.70-6.10); White Blood Count 13.54 K/ul (4.8-10.8)
[2024-02-24] MEDS: PROCHLORPERAZINE 10 MG in SYRINGE 8 ML IV PRN (09:47)
[2024-02-24 09:51] LABS: Albumin Level 3.4 gm/dl (3.4-5.0); Bilirubin,Total 0.5 mg/dl (0.2-1.0); Calcium 8.2 mg/dl (8.6-10.3); Potassium 3.6 mmol/L (3.5-5.1)
[2024-02-24] MEDS: ASPIRIN 81 MG ECTAB PO SCH (09:51)
[2024-02-24] MEDS: LEVOTHYROXINE SODIUM 175 MCG TABLET PO SCH (09:51)
[2024-02-24] MEDS: ATORVASTATIN 40 MG TAB PO SCH (09:51)
[2024-02-24] MEDS: FLUoxetine HCL 20 MG CAP PO SCH (09:51)
[2024-02-24 10:00] LABS: Albumin Globulin Ratio 1.5 (0.9-2); Creatinine Clr Calc Pharmacy 17.3 ml/min; Globulin 2.3 gm/dl (2.5-4.0); Total Protein 5.7 gm/dl (6.0-8.3)
[2024-02-24 10:17] LABS: BUN Creatinine Ratio 31.2 (10-20)
[2024-02-24] MEDS ORDERED: PROCHLORPERAZINE 5 MG in SYRINGE 8 ML IV PRN (10:40)
--- NOTE | 2024-02-24 10:42 | Hospitalist Progress Note ---
Date of Service February 24, 2024 Assessment & Plan (1) Acute on chronic renal insufficiency: Plan: Patient presents with N/V/D x 10-12 days. No sick contacts, recent travel, camping, or eating out at restaurant. It is nonbloody. No fevers or chills. CT abd/pel with cholelithiasis but not cholecystitis, no colitis or bowel obstruction, no obstruction. UA with trace protein and ketones, 5-10 hyaline casts, no infection He was not able to take any of his meds the last week or so including his lisinopril, Dyazide, and metformin. He is also on semaglutide po at home and the dose was recently increased to 7mg in December-could cause N/V Creatinine elevated up to 6 on admission and now improving with IVFs down to 4.29, making urine. 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 With associated AG met acidosis from renal failure and lactic acidosis which is now improving With hypotension ongoing on 02/23--> bolus with LR Continue LR at 125mL/hr Back diet down to clears until nausea improved Hold home lisinopril, Dyazide, metformin, and semaglutide, amlodipine for hypotension and ELTON Consult nephrology appreciated Follow BMP, urine output (2) Nausea vomiting and diarrhea: Plan: as above, could be from semaglutide, infection checking Stool PCR, C. diff continue IVFs, antiemetics-added on compazine to zofran (3) Chronic kidney disease, stage 3: Plan: Baseline creatinine 1.5 as above avoid nephrotoxins, renally dose meds (4) CAD in [place] artery: Plan: With h/o SYLVIE in 11/2021 Denies chest pain, ECG without ischemia, trop 20/15 secondary to demand ischemia from hypotension Continue aspirin and statin Will hold metoprolol secondary to hypotension HTN-holding all home meds for hypotension NSVT -a few 5-6 beat runs on tele--> ensure lytes replete, caution with K replacement with renal failure, monitor on tele, resume metoprolol when BP improved (5) Hypothyroidism: Plan: TSH elevated at 9 but has been unable to take his meds for 1-2 weeks continue same dose Synthroid and follow TSH as outpt in a few weeks (6) Tobacco pipe smoker: Plan: Consulted on smoking cessation (7) Bladder carcinoma: Plan: In remission, no abnormalities on CT abdomen pelvis except stable adrenal mass Plan DVT proph-heparin SQ Dispo-continued stay PCU Admission and Anticipated Discharge Date Admission Date: February 23, 2024 Subjective Pt having more nausea overnight and this AM, now feels better after compazine but BPs low. He denies SOB, CP, lightheadedness. No further diarrhea since yesterday AM. He denies blood in stool. Denies abd pains.No fevers/chills. Denies eating out at a restaurant prior to N/V/D starting 2 weeks ago, denies recent travel or camping/drinking out of streams, and no sick contacts in the preceding few weeks. Of note, he was increased on his dose of semaglutide in December. He has not been able to take any of his medications over the last 2 weeks due to N/V. He has made 600mL of urine so far today Tele with a few 5-6 beat runs of VT overnight and now 1st degree AV block, rates 60s Physical Exam Constitutional: WD/WN, vitals as above Respiratory: normal respiratory effort, lungs clear to auscultation Cardiovascular: RRR, no murmur, no edema Gastrointestinal (Abdomen): normal bowel sounds, soft, nontender, no hepatosplenomegaly Psychiatric: A+Ox3, euthymic affect Results & Data Results & Data Vital Signs (Past 12 Hours) Vital Signs Temp Pulse Pulse Resp BP Pulse Ox O2 Del Method 02/24/24 10:33 36.7 C 69 16 81/59 L 96 Nasal Cannula 02/24/24 07:45 Nasal Cannula 02/24/24 07:34 36.5 C 54 L 17 95/61 L 92 Nasal Cannula 02/24/24 07:26 64 02/24/24 02:58 36.4 C L 58 L 18 114/79 97 Nasal Cannula 02/23/24 23:32 36.5 C 66 18 109/75 96 Nasal Cannula O2 Flow Rate 02/24/24 10:33 2 02/24/24 07:45 2 02/24/24 07:34 2 02/24/24 07:26 02/24/24 02:58 3 02/23/24 23:32 2 Laboratory Results CBC, BMP, lactate, UA reviewed PG Care Time/CCT Total # of Minutes Spent Total Time Spent with Patient: Total time spent is greater than 50% in coordination of care (as documented) at patient's floor/unit and/or counseling patient: Coding Level of Care Code 14441 SUB INP/OBS CARE 3/50MIN Diagnoses Acute on chronic renal insufficiency N28.9; N18.9 Nausea vomiting and diarrhea R11.2; R19.7 Chronic kidney disease, stage 3 N18.30 CAD in [place] artery I25.10 Hypothyroidism E03.9 Tobacco pipe smoker F17.290 Bladder carcinoma C67.9
[2024-02-24] MEDS ORDERED: GLUCAGON FOR INJ 1 MG VIAL SQ PRN (10:50)
[2024-02-24] MEDS ORDERED: GLUCOSE 40% GEL 15 GM TUBE PO PRN (10:50)
[2024-02-24] MEDS ORDERED: GLUCOSE 10 TAB/TUBE PO PRN (10:50)
[2024-02-24] MEDS ORDERED: CARBOHYDRATES FOR HYPOGLYCEMIA PO PRN (10:50)
[2024-02-24] MEDS ORDERED: DEXTROSE 50% 50 ML SYRINGE IV PRN (10:50)
[2024-02-24] MEDS: INSULIN ASPART PER UNIT CHARGE SC SCH (11:42)
[2024-02-24] MEDS: LACTATED RINGER'S 1,000 ML IV ONE (11:51)
--- NOTE | 2024-02-24 12:45 | Nephrology Consultation ---
Date of Consultation February 24, 2024 Assessment & Plan (1) Acute kidney injury: (2) Nausea vomiting and diarrhea: (3) Adrenal mass, right: (4) Metabolic acidosis: Plan 73-year-old gentleman with stage III B CKD, baseline creatinine 1.5-1.8 most likely secondary to microvascular disease with history of hypertension, diabetes, coronary artery disease, smoking, admitted to the hospital with almost 2 weeks history of ongoing diarrhea, nausea vomiting and profound hypotension and volume depletion. Lab on admission was notable for ELTON with creatinine 6, BUN 170 with metabolic acidosis. Urinalysis and renal imaging otherwise unremarkable. Started with IV hydration with improvement in blood pressure, kidney function and electrolyte. Clinically overall doing much better. -- Recommend changing IV fluid to bicarb drip as bicarb still 17, encourage increase p.o. intake. -- Continue to monitor renal function, intake and output, expect renal function to continue to improve -- Hold diuretics and lisinopril for now as blood pressure remain relatively low Thank you for allowing me to participate in your patient's care. It was a pleasure to see Maycol. History of Present Illness Reason for Consultation: ELTON, metabolic acidosis. Attending Physician: Chayito Calvo MD History of Present Illness Ms. Maycol Hopkins is a 73-year-old M with PMH significant for stage 3B CKD, HTN, CAD, DM, admitted with diarrhea, volume depletion, hypotension, ELTON and electrolyte abnormalities. Nephrology consult was requested for management of above. EMR records are reviewed in detail during patient's visit. Maycol presented to ER yesterday with intractable diarrhea. His symptoms started almost 2 weeks ago with diarrhea, occasional nausea and vomiting. He came to ER a week ago and he was given 2 L of IV fluid and advised to get admitted but as he is feeling better he refused and went home. However, his symptoms continued with ongoing diarrhea and he was feeling like passing out and then again came to ER yesterday. He also reported decreased urine output for few days prior to admission. Was on lisinopril, metformin and Ozempic as well as triamterene hydrochlorothiazide all of these currently on hold. With ongoing nausea and occasional vomiting he had difficulty with p.o. intake. On admission he was significantly hypotensive, initial blood pressure was 56/34 which slowly improved with IV fluid. Lab was notable for ELTON with a creatinine 6.1 and BUN 172, bicarb 17. Urinalysis was negative for proteinuria, hematuria or pyuria. CT abdomen pelvis without contrast was negative for postrenal obstruction. Initially he received 2 L of normal saline and then currently he is continued on LR at 125 mL/h. History of smoking for many years, has not been smoking since he became sick over last 1 and half week. No known family history of CKD or ESKD. Past medical history significant for hypertension, diabetes with no proteinuria or retinopathy. Stage III B CKD most likely secondary to microvascular disease with history of hypertension, diabetes, coronary artery disease and smoking, baseline creatinine variable from 1.5-1.8 mg/dl. 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 History of coronary artery disease status post PCI and drug-eluting stent before. History of bladder cancer s/p TURBT in March 2022. Reports overall feeling much better since admission. Nausea improved. Diarrhea seems to be improving as well. Kidney function started to improve rapidly, creatinine down to 4.3, BUN 132 this morning. Allergies Allergy/AdvReac Type Severity Reaction Status Date / Time iodine Allergy Intermediate RASH AND Verified 02/11/24 10:19 HIVES Home Medications Medication Instructions Recorded Confirmed Type nitroglycerin 0.4 mg sublingual 0.4 mg sublingual Q5M PRN chest 10/07/22 02/23/24 Rx tablet pain #25 tabs fluoxetine 20 mg tablet 20 mg PO QAM #90 tabs 10/19/23 02/23/24 Rx amlodipine 5 mg tablet 5 mg PO QAM #90 tabs 11/09/23 02/23/24 Rx atorvastatin 40 mg tablet 40 mg PO QAM #90 tabs 11/09/23 02/23/24 Rx lisinopril 20 mg tablet 20 mg PO QAM #90 tabs 11/09/23 02/23/24 Rx metoprolol succinate 25 mg 25 mg PO QAM #90 tabs 11/09/23 02/23/24 Rx tablet,extended release 24 hr semaglutide 7 mg tablet 7 mg PO DAILY #90 tabs 11/23/23 02/23/24 Rx triamterene 37.5 1 tab PO QAM 01/25/24 02/23/24 History mg-hydrochlorothiazide 25 mg tablet metformin 1,000 mg tablet 1,000 mg PO BID #180 tabs 02/08/24 02/23/24 Rx levothyroxine 175 mcg tablet 175 mcg PO QAM 02/10/24 02/23/24 History ondansetron 4 mg disintegrating 4 mg PO Q6H PRN nausea and 02/10/24 02/23/24 Rx tablet vomiting #14 tabs sucralfate 100 mg/mL oral 10 ml PO QID #420 mL 02/10/24 02/23/24 Rx suspension (Carafate) aspirin 81 mg tablet,delayed 81 mg PO QAM 02/23/24 02/23/24 History release Patient History Medical History Hx of bladder cancer Surgical History History of cataract surgery History of transurethral resection of bladder tumor (TURBT) Hx of inguinal hernia surgery H/O transurethral destruction of bladder lesion Hx of colonoscopy S/P coronary artery stent placement Vocal cord polyp S/P tonsillectomy History of knee surgery History of tooth extraction Family History Father Coronary heart disease Grandfather (Paternal) Lung cancer Grandfather (Maternal) Cancer Mother Breast cancer Brother Colorectal cancer Brother Aortic aneurysm Denies family history of Ovarian cancer Prostate cancer Myocardial infarction Social History Smoking Status: Current every day smoker Tobacco Type: Pipe Age Started Using Tobacco: 42; Cigarettes Per Day: smokes 2-3 per day- advised; Second Hand Exposure: Yes ( A CHILD); Do You Dip or Chew Tobacco: No; Hx Alcohol Use: Yes Alcohol type: beer Hx Substance Use: No Preferred Language: Sami Communication Ability: Effective Visual Impairment: No Limitations Hearing Ability: Normal Chemistry Associate Required: No Beliefs That Will Affect Care: None marital status: Current Living Situation: Alone Current Living Situation Comment: home alone current occupational status: retired Feels Safe at Home: Yes Childhood Exposure to Second-Hand Smoke: Yes Dental Care, Regularly: No Physical Activity Frequency: Daily Seatbelt Use: always Sunscreen Use: No Assistive Devices: None Review of Systems Review of Systems: Detailed review of system was done and pertinent positives and negatives are mentioned above. Physical Exam Constitutional: WD/WN, vitals as above no acute distress Eyes: + anicteric sclerae Neck: normal visual inspection Respiratory: Auscultation: lungs clear to auscultation bilaterally Cardiovascular: RRR, no murmur, no edema Musculoskeletal: Extremities: extremities normal to inspection Skin: no rashes, warm and dry Neurologic: no focal motor deficits Psychiatric: Orientation: alert and oriented x 3 Affect: euthymic affect Results & Data Vital Signs (Past 12 Hours) Vital Signs Temp Pulse Pulse Resp BP Pulse Ox O2 Del Method 02/24/24 12:10 93/57 L 02/24/24 10:54 18 88/54 L 02/24/24 10:33 36.7 C 69 16 81/59 L 96 Nasal Cannula 02/24/24 07:45 Nasal Cannula 02/24/24 07:34 36.5 C 54 L 17 95/61 L 92 Nasal Cannula 02/24/24 07:26 64 02/24/24 02:58 36.4 C L 58 L 18 114/79 97 Nasal Cannula O2 Flow Rate 02/24/24 12:10 02/24/24 10:54 02/24/24 10:33 2 02/24/24 07:45 2 02/24/24 07:34 2 02/24/24 07:26 02/24/24 02:58 3 PG Care Time/CCT Total # of Minutes Spent Total Time Spent with Patient: Total time spent is greater than 50% in coordination of care (as documented) at patient's floor/unit and/or counseling patient: Coding Level of Care Code 59125 IN/OBS CONSULT LVL 5,80M Diagnoses Acute kidney injury N17.9 Nausea vomiting and diarrhea R11.2; R19.7 Adrenal mass, right E27.8 Metabolic acidosis E87.20
--- NOTE | 2024-02-25 00:13 | Electrocardiogram Report ---
Test Reason : Blood Pressure : / mmHG Vent. Rate : 065 BPM Atrial Rate : 065 BPM P-R Int : 240 ms QRS Dur : 128 ms QT Int : 440 ms P-R-T Axes : 082 -78 077 degrees QTc Int : 457 ms Sinus rhythm with 1st degree A-V block with occasional Premature ventricular complexes Left axis deviation Non-specific intra-ventricular conduction block Possible Septal infarct , age undetermined Abnormal ECG When compared with ECG of 10-FEB-2024 08:50, T wave amplitude has increased in Inferior leads Confirmed by João Rousseau ([id number]) on 02/25/2024 12:13:03 AM Referred By: REFERRED SELF Confirmed By:João Rousseau
[2024-02-25 06:48] LABS: Albumin Level 2.9 gm/dl (3.4-5.0); BUN Creatinine Ratio 32.4 (10-20); Calcium 7.5 mg/dl (8.6-10.3); Creatinine Clr Calc Pharmacy 29.1 ml/min; Est GFR (Non-African American) 24.2 ml/min; Magnesium 1.6 mg/dl (1.7-2.4); Phosphorus 2.9 mg/dl (2.5-4.9); Potassium 3.3 mmol/L (3.5-5.1)
[2024-02-25 07:02] LABS: Hematocrit (blood only) 39.5 % (42.0-52.0); Hemoglobin 13.1 g/dl (14.0-18.0); Mean Corpuscular Hgb Conc 33.2 g/dL (32.0-36.0); Mean Corpuscular Volume 90.6 fL (80.0-100.0); Mean Platelet Volume 11.9 fL (9.4-12.4); Platelet Count 120 K/uL (130-400); RDW Coefficient of Variation 13.5 % (11.5-14.5); RDW Standard Deviation 45.6 fL (36.4-46.3); Red Blood Count 4.36 M/uL (4.70-6.10); White Blood Count 5.36 K/ul (4.8-10.8)
[2024-02-25 07:03] LABS: Basophils # (auto) 0.02 K/uL (0.00-0.20); Basophils % (auto) 0.4 %; Eosinophils # (auto) 0.12 K/uL (0.00-0.50); Eosinophils % (auto) 2.2 %; Immature Granulocytes # (auto) 0.02 K/uL (0.01-0.20); Immature Granulocytes % (auto) 0.4 %; Lymphocytes % (auto) 11.2 %; Monocytes # (auto) 0.46 K/uL (0.11-0.59); Monocytes % (auto) 8.6 %; Neutrophils # (auto) 4.14 K/uL (1.40-6.50); Neutrophils % (auto) 77.2 %
[2024-02-25] MEDS: POTASSIUM CHLORIDE CRTAB 20 MEQ TABCR PO STA (10:27)
[2024-02-25] MEDS: MAGNESIUM SULFATE / D5W 1 GM/100 ML BAG IV SCH (10:27)
--- NOTE | 2024-02-25 10:56 | Nephrology Progress Note ---
Date of Service February 25, 2024 Assessment & Plan (1) Acute kidney injury: (2) Nausea vomiting and diarrhea: (3) Adrenal mass, right: (4) Metabolic acidosis: Plan 73-year-old gentleman with stage III B CKD, baseline creatinine 1.5-1.8 most likely secondary to microvascular disease with history of hypertension, diabetes, coronary artery disease, smoking, admitted to the hospital with almost 2 weeks history of ongoing diarrhea, nausea vomiting and profound hypotension and volume depletion. Lab on admission was notable for ELTON with creatinine 6, BUN 170 with metabolic acidosis. Urinalysis and renal imaging otherwise unremarkable. Started with IV hydration with improvement in blood pressure, kidney function and electrolyte. Clinically overall doing much better. Kidney function continues to improve rapidly, electrolyte improved. Volume status acceptable. Blood pressure fair. -- Discontinue IV fluid, encouraged to maintain p.o. intake -- Continue to monitor renal function, intake and output, expect renal function to continue to improve -- Hold diuretics and lisinopril for now as blood pressure remain relatively low Admission and Anticipated Discharge Date Admission Date: February 23, 2024 Arnoldo Severino was seen and evaluated this morning. Overall feels well. Reports decent p.o. intake. Blood pressure improved and has been stable. Kidney function improving rapidly, creatinine down to 2.6, electrolyte acceptable. No nausea, vomiting or diarrhea since admission. Review of Systems Review of Systems: Detailed review of system was done and pertinent positives and negatives are mentioned above. Physical Exam Constitutional: WD/WN, vitals as above no acute distress Eyes: + anicteric sclerae Neck: normal visual inspection Respiratory: Auscultation: lungs clear to auscultation bilaterally Cardiovascular: RRR, no murmur, no edema Musculoskeletal: Extremities: extremities normal to inspection Skin: no rashes, warm and dry Neurologic: no focal motor deficits Psychiatric: Orientation: alert and oriented x 3 Affect: euthymic affect Results & Data Vital Signs (Past 12 Hours) Vital Signs Temp Pulse Pulse Resp BP Pulse Ox O2 Del Method 02/25/24 08:00 Nasal Cannula 02/25/24 07:12 36.6 C 53 L 16 116/69 97 Nasal Cannula 02/25/24 07:00 49 L 02/25/24 02:38 36.8 C 55 L 18 108/66 99 Nasal Cannula O2 Flow Rate 02/25/24 08:00 2 02/25/24 07:12 2 07/04/24 07:00 02/25/24 02:38 2 PG Care Time/CCT Total # of Minutes Spent Total Time Spent with Patient: Total time spent is greater than 50% in coordination of care (as documented) at patient's floor/unit and/or counseling patient: Coding Level of Care Code 92599 SUB INP/OBS CARE 2/35MIN Diagnoses Acute kidney injury N17.9 Nausea vomiting and diarrhea R11.2; R19.7 Adrenal mass, right E27.8 Metabolic acidosis E87.20
--- NOTE | 2024-02-25 17:04 | Hospitalist Progress Note ---
Date of Service February 25, 2024 Assessment & Plan (1) Acute on chronic renal insufficiency: Plan: Patient presents with N/V/D x 10-12 days. No sick contacts, recent travel, camping, or eating out at restaurant. It is nonbloody. No fevers or chills. CT abd/pel with cholelithiasis but not cholecystitis, no colitis or bowel obstruction, no obstruction. UA with trace protein and ketones, 5-10 hyaline casts, no infection He was not able to take any of his meds the last week or so including his lisinopril, Dyazide, and metformin. He is also on semaglutide po at home and the dose was recently increased to 7mg in December-could cause N/V Creatinine elevated up to 6 on admission and now continues to be improving with IVFs --> professor of apologetics now 2.56, continues to be making urine. Baseline professor of apologetics 1.5-1.8. With associated AG met acidosis from renal failure and lactic acidosis which is now resolved With hypotension now resolved with boluses and holding BP meds N/V now resolved--> eating regular food, can dc IVFs Continue to hold home lisinopril, Dyazide, metformin, and semaglutide, amlodipine Consult nephrology appreciated Follow BMP, urine output (2) Nausea vomiting and diarrhea: Plan: as above, could be from semaglutide, infection--> now resolved and no diarrhea since admission, seems unlikely now this is infectious check Stool PCR, C. diff if diarrhea returns continue antiemetics- compazine, zofran as needed (3) Chronic kidney disease, stage 3: Plan: Baseline creatinine 1.5 as above avoid nephrotoxins, renally dose meds (4) CAD in [place] artery: Plan: With h/o SYLVIE in 11/2021 Denies chest pain, ECG without ischemia, trop 20/15 secondary to demand ischemia from hypotension Continue aspirin and statin Will continue to hold metoprolol secondary to hypotension but also with bradycardia in the 50s-60s off metoprolol HTN-holding all home meds for hypotension which is now improved NSVT -a few 5-6 beat runs on tele on 02/22, none since then--> ensure lytes replete, give KCl 40 meq po, give magnesium 2 grams IV for hypomagnesemia Continue to monitor on tele, resume metoprolol when BP improved (5) Hypothyroidism: Plan: TSH elevated at 9 but has been unable to take his meds for 1-2 weeks continue same dose Synthroid and follow TSH as outpt in a few weeks (6) Tobacco pipe smoker: Plan: Consulted on smoking cessation (7) Bladder carcinoma: Plan: In remission, no abnormalities on CT abdomen pelvis except stable adrenal mass Plan Dep/Anx-continue fluoxetine DVT proph-heparin SQ Dispo-continued stay PCU, but improving, possible dc to home tomorrow Admission and Anticipated Discharge Date Admission Date: February 23, 2024 Subjective Feeling better today, no further nausea, tolerating clears and then solids. No diarrhea, no abd pain. Tele with NSR, rates 50s Physical Exam Constitutional: WD/WN, vitals as above Respiratory: normal respiratory effort, lungs clear to auscultation Cardiovascular: RRR, no murmur, no edema Gastrointestinal (Abdomen): normal bowel sounds, soft, nontender, no hepatosplenomegaly Psychiatric: A+Ox3, euthymic affect Results & Data Results & Data Vital Signs (Past 12 Hours) Vital Signs Temp Pulse Pulse Resp BP Pulse Ox O2 Del Method 02/25/24 15:24 36.6 C 74 18 105/68 96 Nasal Cannula 02/25/24 14:09 60 02/25/24 11:35 36.7 C 57 L 16 134/82 95 Nasal Cannula 02/25/24 08:00 Nasal Cannula 02/25/24 07:12 36.6 C 53 L 16 116/69 97 Nasal Cannula 02/25/24 07:00 49 L O2 Flow Rate 02/25/24 15:24 1 02/25/24 14:09 02/25/24 11:35 02/25/24 08:00 2 02/25/24 07:12 2 02/25/24 07:00 Laboratory Results CBC, BMP, magnesium, blood cxs reviewed PG Care Time/CCT Total # of Minutes Spent Total Time Spent with Patient: Total time spent is greater than 50% in coordination of care (as documented) at patient's floor/unit and/or counseling patient: Coding Level of Care Code 94199 SUB INP/OBS CARE 2/35MIN Diagnoses Acute on chronic renal insufficiency N28.9; N18.9 Nausea vomiting and diarrhea R11.2; R19.7 Chronic kidney disease, stage 3 N18.30 CAD in [place] artery I25.10 Hypothyroidism E03.9 Tobacco pipe smoker F17.290 Bladder carcinoma C67.9
[2024-02-26 06:36] LABS: Albumin Level 3.1 gm/dl (3.4-5.0); BUN Creatinine Ratio 24.1 (10-20); Calcium 7.6 mg/dl (8.6-10.3); Creatinine Clr Calc Pharmacy 38.3 ml/min; Est GFR (Non-African American) 33.6 ml/min; Magnesium 1.6 mg/dl (1.7-2.4); Phosphorus 1.6 mg/dl (2.5-4.9); Potassium 3.4 mmol/L (3.5-5.1)
[2024-02-26] MEDS ORDERED: POTASSIUM PHOS 3 MMOL/1 ML INFUSION IV STA (09:45)
[2024-02-26] MEDS: POTASSIUM PHOSPHATE 9 MMOL in SODIUM CHLORIDE 0.9% 250 ML IV ONE (10:58)
[2024-02-26] MEDS: MAGNESIUM SULFATE / D5W 1 GM/100 ML BAG IV SCH (10:58)
--- NOTE | 2024-02-26 12:26 | Nephrology Progress Note ---
Date of Service February 26, 2024 Assessment & Plan (1) Acute kidney injury: (2) Nausea vomiting and diarrhea: (3) Adrenal mass, right: (4) Metabolic acidosis: Plan 73-year-old gentleman with stage III B CKD, baseline creatinine 1.5-1.8 most likely secondary to microvascular disease with history of hypertension, diabetes, coronary artery disease, smoking, admitted to the hospital with almost 2 weeks history of ongoing diarrhea, nausea vomiting and profound hypotension and volume depletion. Lab on admission was notable for ELTON with creatinine 6, BUN 170 with metabolic acidosis. Urinalysis and renal imaging otherwise unremarkable. Started with IV hydration with improvement in blood pressure, kidney function and electrolyte. Clinically overall doing much better. Kidney function continues to improve rapidly, electrolyte improved. Volume status acceptable. Blood pressure fair. -- encouraged to maintain p.o. intake, avoid NSAID use. -- Continue to monitor renal function, intake and output, expect renal function to continue to improve -- Recommend labs done early next week and result copy to PCP. Okay to resume lisinopril home dose. Okay to be discharged from nephrology standpoint. Admission and Anticipated Discharge Date Admission Date: February 23, 2024 rAnoldo Severino was seen and evaluated this morning. Overall feels well. Reports decent p.o. intake. Blood pressure improved and has been stable. Kidney function improving rapidly, creatinine down to 1.9, electrolyte acceptable. No nausea, vomiting or diarrhea since admission. Review of Systems Review of Systems: Detailed review of system was done and pertinent positives and negatives are mentioned above. Physical Exam Constitutional: WD/WN, vitals as above no acute distress Eyes: + anicteric sclerae Neck: normal visual inspection Respiratory: Auscultation: lungs clear to auscultation bilaterally Cardiovascular: RRR, no murmur, no edema Musculoskeletal: Extremities: extremities normal to inspection Skin: no rashes, warm and dry Neurologic: no focal motor deficits Psychiatric: Orientation: alert and oriented x 3 Affect: euthymic affect Results & Data Vital Signs (Past 12 Hours) Vital Signs Temp Pulse Pulse Resp BP Pulse Ox O2 Del Method 02/26/24 11:15 36.6 C 62 18 142/90 H 98 Nasal Cannula 02/26/24 07:28 36.5 C 64 18 124/80 96 Nasal Cannula 02/26/24 07:26 56 L 02/26/24 03:16 36.3 C L 56 L 18 140/76 91 Room Air O2 Flow Rate 02/26/24 11:15 1 02/26/24 07:28 2 02/26/24 07:26 02/26/24 03:16 PG Care Time/CCT Total # of Minutes Spent Total Time Spent with Patient: Total time spent is greater than 50% in coordination of care (as documented) at patient's floor/unit and/or counseling patient: Coding Level of Care Code 41763 SUB INP/OBS CARE 2/35MIN Diagnoses Acute kidney injury N17.9 Nausea vomiting and diarrhea R11.2; R19.7 Adrenal mass, right E27.8 Metabolic acidosis E87.20
--- NOTE | 2024-02-26 15:46 | Discharge Summary ---
Discharge Summary Date of Service February 26, 2024 Principal Dx & Hospital Course #1 = Principal Diagnosis (1) Acute on chronic renal insufficiency: Acute renal failure with ATN Patient presents with N/V/D x 10-12 days. No sick contacts, recent travel, camping, or eating out at restaurant. It is nonbloody. No fevers or chills. CT abd/pel with cholelithiasis but not cholecystitis, no colitis or bowel obstruction, no obstruction. UA with trace protein and ketones, 5-10 hyaline casts, no infection He was not able to take any of his meds the last week or so including his lisinopril, Dyazide, and metformin. He is also on semaglutide po at home and the dose was recently increased to 7mg in December-likely caused N/V Creatinine elevated up to 6 on admission and now much improved with IVFs --> shingle carrier now 1.95, continues to be making urine. Baseline shingle carrier 1.5-1.8. With associated AG met acidosis from renal failure and lactic acidosis which is now resolved With hypotension now resolved with boluses and holding BP meds N/V now resolved--> eating regular food, feeling much better Can resume home lisinopril, amlodipine, and metoprolol at half the dose (due to relative bradycardia) on discharge Dyazide, metformin, and semaglutide stopped for now, but could probably resume lower dose semaglutide and metformin in the future Consult nephrology appreciated Follow BMP in 3-4 days as outpt with results to PCP (2) Nausea vomiting and diarrhea: as above, could be from semaglutide--> now resolved and no diarrhea since admission, seems unlikely now this is infectious stool studies not checked as he had no BM while admitted Stop semaglutide for now, could likely resume lower dose with PCP in follow up (3) Chronic kidney disease, stage 3: Baseline creatinine 1.5 as above avoid nephrotoxins, renally dose meds ok to resume lisinopril (4) CAD in [place] artery: With h/o SYLVIE in 11/2021 Denies chest pain, ECG without ischemia, trop 20/15 secondary to demand ischemia from hypotension Continue aspirin and statin held metoprolol secondary to hypotension but also with bradycardia in the 50s- 60s off metoprolol--> HR in 50-70s off metoprolol--> can resume at home at lower dose of 12.5mg daily HTN-meds as noted above NSVT -a few 5-6 beat runs on tele on 02/22, none since then--> likely related to electrolyte abnormalities and ELTON now repleted magnesium, potassium, and phos (5) Hypothyroidism: TSH elevated at 9 but has been unable to take his meds for 1-2 weeks continue same dose Synthroid and follow TSH as outpt in a few weeks (6) Tobacco pipe smoker: Consulted on smoking cessation (7) Bladder carcinoma: In remission, no abnormalities on CT abdomen pelvis except stable adrenal mass Plan Dep/Anx-continue fluoxetine DVT proph-heparin SQ Dispo-dc to home today Notes For Next Care Provider Check BMP in 3-4 days-Rx given Resume metformin and lower dose semaglutide possibly in 1-2 weeks once renal function improves back to baseline Medication Changes From Visit HOLD semaglutide, metformin Stop Dyazide Reduced metoprolol to 12.5mg po daily Stopped home Zofran, carafate Admission HPI Per Admitting Provider This is a 73-year-old male with multiple medical problems, significant for hypertension, CAD status post drug-eluting stent 12/11/2021, diabetes mellitus type 2, hypothyroidism, CKD stage III plan creatinine 1.5, bladder cancer, status post TURBT , 03/25/2022 patient presents to the hospital with intractable diarrhea since Thursday, after he ate at a truck stop, he reports nausea and vomiting as well, was able to keep down water and milk occasionally. He reports feeling unwell for at least 2-week, in the ER he is blood work is consistent with ELTON, fattening is 6, BUN 140, and is hypertensive, started on IV fluids, last systolic blood pressure 100, patient denies any chest pain or shortness of breath, no abdominal pain, urinated less times this morning. CT abdomen pelvis no acute abnormalities Discharge Exam Constitutional WD/WN, vitals as above Respiratory normal respiratory effort, lungs clear to auscultation Cardiovascular RRR, no murmur, no edema Gastrointestinal (Abdomen) normal bowel sounds, soft, nontender, no hepatosplenomegaly Psychiatric A+Ox3, euthymic affect Updated Medication List Medication Instructions Recorded Confirmed Type nitroglycerin 0.4 mg sublingual 0.4 mg sublingual Q5M PRN chest 10/07/22 02/23/24 Rx tablet pain #25 tabs fluoxetine 20 mg tablet 20 mg PO QAM #90 tabs 10/19/23 02/23/24 Rx amlodipine 5 mg tablet 5 mg PO QAM #90 tabs 11/09/23 02/23/24 Rx atorvastatin 40 mg tablet 40 mg PO QAM #90 tabs 11/09/23 02/23/24 Rx lisinopril 20 mg tablet 20 mg PO QAM #90 tabs 11/09/23 02/23/24 Rx metformin 1,000 mg tablet 1,000 mg PO BID #180 tabs 02/08/24 02/23/24 Rx levothyroxine 175 mcg tablet 175 mcg PO QAM 02/10/24 02/23/24 History aspirin 81 mg tablet,delayed 81 mg PO QAM 02/23/24 02/23/24 History release metoprolol succinate 25 mg 12.5 mg (1/2 x 25 mg) PO QAM #90 02/26/24 02/23/24 Rx tablet,extended release 24 hr tabs Hospital Stay Data Consultations 02/23/24 16:20 ED Decision to Admit Stat 02/23/24 23:23 Consult Nephrology Routine Diagnostic Imagining Performed 02/23/24 15:58 CT abd pelvis wo con Stat CT chest diagnostic wo con Stat Pending Results Patient Have Any Pending Studies at Discharge: No Discharge Instructions Given to Patient (Per Discharging Provider) You were admitted with persistent nausea/vomiting for 2 weeks likely related to taking semaglutide at an increased dose. You had kidney failure which is now much improved. Please continue to stay hydrated, avoid carbonated beverages, and STOP taking your triamterene/HCTZ for now. Please HOLD off on taking any further semaglutide at this time until you see your doctor. You will also need to stay OFF your metformin until your kidney function returns the whole way back to your baseline. In the meantime, if you notice your blood sugars rising, please reach out to Dr. Doyle. Please have blood work done in 3-4 days to recheck your kidney function. Your PCP can review the results of this with you. Total Time Total Time Spent Total Time Spent (In Minutes): 35 min Total Time Includes: Examination of the Patient, Discharge Planning and Medication Reconciliation Coding Level of Care Code 85125 INP/OBS DISCH >30 MIN Diagnoses Acute on chronic renal insufficiency N28.9; N18.9 Nausea vomiting and diarrhea R11.2; R19.7 Chronic kidney disease, stage 3 N18.30 CAD in [place] artery I25.10 Hypothyroidism E03.9 Tobacco pipe smoker F17.290 Bladder carcinoma C67.9
== END 2024-02-26 16:25 | disposition home or self-care (01) | DRG 683 ==
LOC: ED 13:56 → 4W 17:07 → SUATTDRO 17:07 → 4W 18:44
DX: T38.3X5A Adverse effect of insulin and oral hypoglycemic [antidiabetic] drugs, initial encounter; Z88.8 Allergy status to other drugs, medicaments and biological substances; Z85.51 Personal history of malignant neoplasm of bladder; E87.20 Acidosis, unspecified; Z95.5 Presence of coronary angioplasty implant and graft; Z79.899 Other long term (current) drug therapy; N18.32 Chronic kidney disease, stage 3b; Z79.890 Hormone replacement therapy; I12.9 Hypertensive chronic kidney disease with stage 1 through stage 4 chronic kidney disease, or unspecified chronic kidney disease; F17.210 Nicotine dependence, cigarettes, uncomplicated; R19.7 Diarrhea, unspecified; Z79.85 Long-term (current) use of injectable non-insulin antidiabetic drugs; I25.10 Atherosclerotic heart disease of native coronary artery without angina pectoris; E11.22 Type 2 diabetes mellitus with diabetic chronic kidney disease; I24.89 Other forms of acute ischemic heart disease; Z79.84 Long term (current) use of oral hypoglycemic drugs; E27.8 Other specified disorders of adrenal gland; Z79.82 Long term (current) use of aspirin; I95.9 Hypotension, unspecified; N17.0 Acute kidney failure with tubular necrosis; E03.9 Hypothyroidism, unspecified; R11.2 Nausea with vomiting, unspecified